=== PATIENT | male | born 1950 | race Caucasian/White ===

== ENCOUNTER 2019-03-15 20:36 | Inpatient (IN) | payer BC, OTHER ==
--- NOTE | 2019-03-15 20:46 | PDOC ---
Rapid Medical Evaluation Chief Complaint: Nausea/Vomiting Time Seen by Provider: 03/15/19 20:44 Medical Evaluation: Allergies Allergy/AdvReac Type Severity Reaction Status Date / Time ALL RAW FRUITS Allergy Intermediate "ITCH Uncoded 06/23/14 11:50 INSIDE BODY" ? ANTIBIOTIC Allergy Uncoded 06/20/15 14:11 03/15/19 20:44 I have performed a brief in-person evaluation of this patient. The patient presents with a chief complaint of: N/V since yesterday with sudden worsening weakness and sweating since an hour ago according to family. Pt report BERRY since yesterday Pertinent physical exam findings: A&O in moderate distress with mild diphoretic I have ordered the following: CBC, CMP, lipase. cardiac profile ,zofran. IV insert The patient will proceed to the ED for further evaluation. Discharge Disposition - Diagnosis Malaise Nausea & vomiting Qualifiers: Vomiting type: bilious vomiting Qualified Code(s): R11.14 - Bilious vomiting - Discharge Dispostion Condition at time of disposition: Stable - Referrals - Patient Instructions - Post Discharge Activity
[2019-03-15] MEDS ORDERED: ONDANSETRON *ODT* 4 MG TABLET SL ONE (20:47)
[2019-03-15] MEDS ORDERED: FAMOTIDINE 20 MG/50 ML IVPB 20 MG/50 ML MG IVPB ONE (20:48)
[2019-03-15] MEDS ORDERED: SODIUM CHLORIDE 500 ML IV STA (20:48)
[2019-03-15] MEDS ORDERED: RAPID SEQUENCE INTUBATION KIT NR ONE (21:41)
[2019-03-15] MEDS ORDERED: NALOXONE HCL 0.4 MG/ML VIAL ONE (21:41)
[2019-03-15] MEDS ORDERED: ONDANSETRON 4 MG/2 ML VIAL ONE (22:03)
[2019-03-15] MEDS ORDERED: PANTOPRAZOLE SODIUM 40 MG VIAL IVPUSH ONE ×2 (22:46→23:41)
--- NOTE | 2019-03-15 22:46 | PDOC ---
Attending Attestation - Resident Resident Name: Alvarado Munoz - ED Attending Attestation I have performed the following: I have examined & evaluated the patient, The case was reviewed & discussed with the resident, I agree w/resident's findings & plan, Exceptions are as noted - HPI HPI: 03/15/19 22:39 68 yo male h/o endovascular aaa repair, for infrarenal anuerysm 06/29/14, cirrhosis, htn hld here for headache intractable vomiting today, loose stool. per family at bedside pt was with hemetemesis, coffee ground emesis today. went to see his fudger today and was sent to reschedule. on arrival to ER pt was lethargic, became unresponsive with depressed respirations. called to bedisde pt with depressed respirations. per family. pt no complaints of cp or sob today. - Physicial Exam PE: 03/15/19 22:40 stuporous, unresponsive. lungs clear bilat heart rrr no mrg abd soft obese nondisteded. few scattered purpurua abd, ext wwp no edema. cool. large bruise. noted to legs. nuoer. pt no spontaneous movement. - Critical Care Time Total Critical Care Time: 90 Critical Care Statement: The care of this patient involved high complexity decision making to prevent further life threatening deterioration of the patient 's condition and/or to evaluate & treat vital organ system(s) failure or risk of failure. pt intubated for AMS unresponsive ness, resp depression found to have ICH, thrombocytopenia, on coumadin. given platelets, vit K FFP, mannitol. consult nuerosurgery. will take to or for decompression. pt with upper gi coffe groundmterial on intubation. given protonix 80, gi consulted. will admit to ICU d/w family regarding severity or the situation, progonosis - Medical Decision Making 03/15/19 22:41 68 yo male h/o cirrehosis thrombocytopenia, on coumadin, aaa repair. htn hld here with n/v headache. followed by unresponsiveness. pt was intubated with RSI ( rocuronium) noted large coffe ground, bloody emesis in mouth. airated well following intubation. rhomnchi lung bases. differential htn ich, aaa rupture, av fistula, sepsis, acidosis. plan ct head r/ o ich, cta r/o aortic rupture or endoleak. pt will require icu. gi prophuylaxis for GI bleed. 03/15/19 22:50 pt with intracranial bleed. will page dr hyatt. 03/15/19 23:06 d/w dr hyatt, poor prognosis based on ct scan. posterior fossa bleed with intra ventricular extension. will give mannitol, ffp and vit k for presumed coaguloapathy 03/16/19 00:01 dr Hyatt with pt will take to or. consulted ICU. pt accepted. d/w Dr Souza , will admit pt. Heart Score/ECG Review #1 ECG reviewed & interpreted by me at: 23:08 General ECG Interpretation: Sinus Rhythm, Normal Rate, Normal Intervals Compared to previous ECG there are: Other (st depression I, AVL, TWI, V5/ V6)
[2019-03-15] MEDS ORDERED: LABETALOL HCL 5 MG/1 ML (100MG/20 ML VIAL) IVPUSH ONE (22:51)
[2019-03-15] MEDS ORDERED: PHYTONADIONE 10 MG/1 ML AMP IVPB ONE (23:05)
[2019-03-15] MEDS ORDERED: MANNITOL 25% 12.5 GM/50 ML VIAL IVPB ONE (23:06)
[2019-03-15 23:18] LABS: HEMATOCRIT 32.1 % (35.4-49); HEMOGLOBIN 10.4 GM/dL (11.7-16.9); MCH 33.1 pg (25.7-33.7); MCHC 32.4 g/dl (32.0-35.9); MEAN CELL VOLUME 102.4 fl (80-96); MEAN PLT VOLUME 10.5 fl (7.5-11.1); RBC 3.14 M/mm3 (4.00-5.60); RDW 17.3 % (11.9-15.9); WHITE BLOOD COUNT 11.3 K/mm3 (4.0-10.0)
[2019-03-15 23:27] LABS: INR 1.24 (0.83-1.09); PROTHROMBIN TIME (PATIENT) 14.7 SEC (9.7-13.0)
[2019-03-15 23:30] LABS: ACTIVATED PTT 33.9 SECONDS (25.2-36.5)
--- NOTE | 2019-03-15 23:30 | PDOC ---
History of Present Illness <Leanne Rouse - Last Filed: 03/15/19 23:57> - History of Present Illness Initial Comments: Mr. Avalos is a 68 y/o male with hx of AAA, cirrhosis, HTN, HLD, presenting today with headache and nausea/vomiting that started today. Associated with loose stool, hematemesis, and coffee ground emesis earlier today. On arrival to the ED patient was lethargic. Denies chest pain, denies shortness of breath. SurgHx: AAA repair for infrarenal aneurysm <Alvarado Munoz - Last Filed: 03/16/19 02:54> - General Chief Complaint: Nausea/Vomiting Stated Complaint: FEVER NAUSEA Time Seen by Provider: 03/15/19 20:44 Past History <Leanne Rouse - Last Filed: 03/15/19 23:57> - Past Medical History Anemia: Yes Asthma: No Cancer: No Cardiac Disorders: Yes (CAD) CVA: No COPD: No CHF: No Dementia: No Diabetes: No GI Disorders: Yes (GERD;GAstritis) Disorders: Yes (KELLY RENAL CYSTS) HTN: Yes Hypercholesterolemia: Yes Liver Disease: (FATTY LIVER/CIRRHOSIS) Seizures: No Thyroid Disease: No - Surgical History Abdominal Surgery: Yes Appendectomy: Yes Cardiac Surgery: Yes (CABG-DOUBLE BYPASS) Cholecystectomy: No Lung Surgery: No Neurologic Surgery: No Orthopedic Surgery: No - Suicide/Smoking/Psychosocial Hx Smoking History: Never smoked Have you smoked in the past 12 months: No If you are a former smoker, when did you quit?: 2005 Hx Alcohol Use: No Drug/Substance Use Hx: No Substance Use Type: None Hx Substance Use Treatment: No <Alvarado Munoz - Last Filed: 03/16/19 02:54> - Past Medical History Allergies/Adverse Reactions: Allergies Allergy/AdvReac Type Severity Reaction Status Date / Time Iodinated Contrast- Oral and Allergy Verified 03/15/19 23:19 IV Dye ALL RAW FRUITS Allergy Intermediate "ITCH Uncoded 03/15/19 20:49 INSIDE BODY" Home Medications: Ambulatory Orders Atorvastatin Ca [Lipitor] 20 mg PO HS 03/02/14 Carvedilol [Coreg] 6.25 mg PO DAILY 03/02/14 Allopurinol [Zyloprim -] 100 mg PO DAILY 06/20/15 Losartan/Hydrochlorothiazide [Losartan-Hctz 100-12.5 mg Tab] 1 tab PO DAILY 10/30 Aspirin [Aspirin EC] 81 mg PO DAILY #0 06/21/15 Colchicine 0.6 mg PO DAILY #7 tablet 06/21/15 *Physical Exam - Vital Signs Last Vital Signs Temp Pulse Resp BP Pulse Ox 97.4 F L 79 20 192/81 H 97 03/15/19 20:41 03/15/19 20:41 03/15/19 20:41 03/15/19 20:41 03/15/19 20:41 <Leanne Rouse - Last Filed: 03/15/19 23:57> - Vital Signs Last Vital Signs Temp Pulse Resp BP Pulse Ox 97.4 F L 79 20 192/81 H 97 03/15/19 20:41 03/15/19 20:41 03/15/19 20:41 03/15/19 20:41 03/15/19 20:41 <Alvarado Munoz - Last Filed: 03/16/19 02:54> ED Treatment Course - LABORATORY CBC & Chemistry Diagram: 03/15/19 23:00 03/15/19 23:00 - ADDITIONAL ORDERS Additional order review: Laboratory Results 03/15/19 03/15/19 03/15/19 23:05 23:00 23:00 PT with INR INR PTT (Actin FS) Sodium 141 Potassium 4.6 Chloride 112 H Carbon Dioxide 20 L Anion Gap 10 BUN 44.2 H Creatinine 2.0 H Est GFR (CKD-EPI)AfAm 38.87 Est GFR (CKD-EPI)NonAf 33.54 POC Glucometer Random Glucose 212 H Calcium 9.0 Total Bilirubin 1.2 H AST 15 ALT 10 L Alkaline Phosphatase 78 Creatine Kinase 96 Troponin I < 0.02 Total Protein 7.3 Albumin 4.3 Triglycerides 139 Cholesterol 125 Total LDL Cholesterol 70 HDL Cholesterol 49 Crossmatch See Detail 03/15/19 03/15/19 23:00 21:44 PT with INR 14.70 H INR 1.24 H PTT (Actin FS) 33.9 Sodium Potassium Chloride Carbon Dioxide Anion Gap BUN Creatinine Est GFR (CKD-EPI)AfAm Est GFR (CKD-EPI)NonAf POC Glucometer 220 Random Glucose Calcium Total Bilirubin AST ALT Alkaline Phosphatase Creatine Kinase Troponin I Total Protein Albumin Triglycerides Cholesterol Total LDL Cholesterol HDL Cholesterol Crossmatch 03/15/19 03/15/19 23:00 21:44 RBC 3.14 L MCV 102.4 H MCHC 32.4 RDW 17.3 H MPV 10.5 D POC Glucometer 220 - RADIOLOGY Radiology Studies Ordered: Category Date Time Status ABDOMEN/PELVIS CTA W/WO CONTR [CT] Stat CT Scan 03/15/19 22:22 Completed CHEST CTA [CT] Stat CT Scan 03/15/19 22:22 Completed <Leanne Rouse - Last Filed: 03/15/19 23:57> - LABORATORY CBC & Chemistry Diagram: 03/15/19 23:00 03/15/19 23:00 - ADDITIONAL ORDERS Additional order review: Laboratory Results 03/15/19 21:44 POC Glucometer 220 03/15/19 03/15/19 23:00 21:44 RBC 3.14 L MCV 102.4 H MCHC 32.4 RDW 17.3 H MPV 10.5 D POC Glucometer 220 <Alvarado Munoz - Last Filed: 03/16/19 02:54> Medical Decision Making - Medical Decision Making 03/15/19 2245 68M on coumadin s/p AAA repair. Headache, coffee ground emesis, lethargic on presentation. At bedside, patient became unresponsive without good air movements. Pulses intact. Patient was ventilated. Patient remained unresponsive. Rapid sequence intubation with rocuronium. On intubation, coffee ground emesis was suctioned all around the mouth. Bilateral breath sounds present after intubation. DDX includes intracranial hemorrhage 2/2 HTN, AAA rupture, sepsis. Will obtain CT of the head and CTA of the chest, abdomen, and pelvis. 03/15/19 23:00 Patient found to have intracranial hemorrhage. Acute partially clotted hemorrhage seen within right cerebellar hemisphere extending into superior cerebellar vermins. Intraventricular extension noted. Obstructive hydrocephalus seen. Effacement of perimesencephalic cisterns. Small acute right sided interhemispheric subdural hematoma noted. Dr. Hyatt (neurosurgery) called. Prognosis poor. Will give mannitol, FFP, vitamin K. <Alvarado Munoz - Last Filed: 03/16/19 02:54> *DC/Admit/Observation/Transfer <Leanne Rouse - Last Filed: 03/15/19 23:57> - Discharge Dispostion Decision to Admit order: Yes <Alvarado Munoz - Last Filed: 03/16/19 02:54> Diagnosis at time of Disposition: Malaise, Brain bleed, Thrombocytopenia, GI bleed Nausea & vomiting Qualifiers: Vomiting type: bilious vomiting Qualified Code(s): R11.14 - Bilious vomiting - Discharge Dispostion Condition at time of disposition: Critical - Referrals Referrals: Adrianna Linda MD [Primary Care Provider] - - Patient Instructions - Post Discharge Activity
[2019-03-15 23:41] LABS: CHOLESTEROL 125 mg/dL (50-200); HDL CHOLESTEROL 49 mg/dL (40-60); LDL CHOLESTEROL (ONLY SJRH) 70 mg/dL (5-100); TRIGLYCERIDES 139 mg/dL (0-150)
[2019-03-15] MEDS ORDERED: OCTREOTIDE ACETATE 200 MCG, OCTREOTIDE ACETATE 1,000 MCG in DEXTROSE 5%-WATER - 496 ML IVPB SCH (23:45)
[2019-03-15] MEDS: NICARDIPINE 25 MG in DEXTROSE 5%-WATER - 240 ML IVPB SCH (23:45)
[2019-03-15] MEDS ORDERED: PANTOPRAZOLE SODIUM 80 MG in SODIUM CHLORIDE 100 ML IVPB SCH (23:45)
[2019-03-15 23:46] LABS: ALBUMIN 4.3 g/dl (3.4-5.0); ALK PHOS 78 U/L (45-117); ANION GAP 10 MMOL/L (8-16); BILIRUBIN,TOTAL 1.2 mg/dL (0.2-1); BLOOD UREA NITROGEN 44.2 mg/dL (7-18); CHLORIDE 112 mmol/L (98-107); CO2 20 mmol/L (21-32); GLUCOSE,RANDOM 212 mg/dL (74-106); POTASSIUM 4.6 mmol/L (3.5-5.1); SGOT/AST 15 U/L (15-37); SGPT/ALT 10 U/L (13-61); SODIUM 141 mmol/L (136-145); TOT PROT 7.3 g/dl (6.4-8.2)
[2019-03-15 23:48] LABS: PLATELET COUNT 15 K/MM3 (134-434)
[2019-03-15] MEDS ORDERED: NALOXONE HCL 0.4 MG/ML VIAL IVPUSH ONE (23:53)
[2019-03-15] MEDS ORDERED: ROCURONIUM BROMIDE 50 MG/5 ML VIAL IV ONE (23:53)
[2019-03-15] MEDS: OCTREOTIDE ACETATE 200 MCG, OCTREOTIDE ACETATE 1,000 MCG in DEXTROSE 5%-WATER - 496 ML IVPB SCH (23:57)
--- NOTE | 2019-03-15 23:57 | PN ---
Progress Note (short form) - Note Progress Note: NEUROSURGERY CONSULT DICTATED Pt examined Chart reviewed CT reviewed Family at bedside Also with maroon color stool - GI informed PE: Intubated; hypertensive earlier (192/81) now 160's, and received rocuronium CV- RR; Lungs- decreased BS at bases; Abd- benign, obese, ecchomosis; Ext- no sign of DVT CN- B pupils 4 mm NR; no gag; no Doll's; Motor- no movement to pain except occ toe movements; Sensation- intact LT; DTR- hyporeflexic; toes equivocal INR 1.25; platelet 18k Head CT- large midline and R cerebellar mixed density ICH (acute) with mass effect on 4th ventricle at least 4 x 5 cm in size; intraventricular extension; B temporal horns Probable cerebellar hypertensive ICH with mass effect and mental status deterioration Vitamin K given FFP/platelet ordered and to be transfused PRBC ordered Decompressive post fossa surgery for ICH is the only chance pt has at survival, even though outcome is grave regardless of (no more than 5% chance of recovering from surgery) what is done or not Risks: bleeding, infection, stroke, , inability to stop bleeding in OR; rehemorrhage Potential risks and benefits discussed Mannitol x1 D/W , son, and daughter and family wish to proceed with surgery desite the minimal chance of surviving/recovering from surgery All questions answered
[2019-03-16] MEDS ORDERED: PHYTONADIONE 10 MG/1 ML AMP ONE (00:06)
[2019-03-16] MEDS ORDERED: LABETALOL HCL 5 MG/1 ML (200MG/40ML VIAL) IVPB ONE (00:06)
[2019-03-16] MEDS ORDERED: PANTOPRAZOLE SODIUM 40 MG VIAL ONE (00:07)
--- NOTE | 2019-03-16 00:59 | CONS ---
DATE OF CONSULTATION: 03/15/2019 REQUESTING PHYSICIAN: Leanne Rouse M.D., emergency department CONSULTING PHYSICIAN: Steffen Stephen M.D., neurosurgery CHIEF COMPLAINT: Probable cerebellar hypertensive hemorrhage/stroke. HISTORY OF PRESENT ILLNESS: The patient is a 68-year-old right hand male with a history of aortic aneurysm status post endovascular treatment, hypertension, hypercholesterolemia, on chronic anticoagulation, who is brought to the emergency room for approximately a day history of nausea and vomiting by report. He also developed worsening nausea and vomiting with diplopia earlier this evening at about 7:30 p.m. He was brought to the emergency room, and his mental status deteriorated and was intubated for airway protection. He was given paralytics for intubation. There was a report of fever, but no witnessed seizure activity. PAST MEDICAL HISTORY: He was hypertensive upon admission, and blood pressure subsequently was lower after intubation. Past medical history significant for hypertension, CAD s/p CABG, AAA status post endovascular repair. MEDICATION: Included Coumadin and antihypertensive as well as the cholesterol medication at home. ALLERGIES: No known drug allergies. FAMILY HISTORY: Noncontributory. SOCIAL HISTORY: He does not smoke. He quit drinking many years ago. He lives at home with his family. REVIEW OF SYSTEMS: Otherwise negative for other major constitutional, head/neck , cardiovascular, pulmonary, gastrointestinal, genitourinary, endocrinologic, neurologic, or psychological problems except for the above. PHYSICAL EXAMINATION: Vital signs: Temperature is 97.4, blood pressure 192/80, but most recently had systolic pressure of 160s, pulse rate 79. HEENT: Normocephalic, atraumatic, anicteric. Neck: Supple. Coronary: Regular rhythm. Lungs: Decreased breath sounds in the bases. He is intubated. Abdomen: Obese and had some areas of ecchymosis. Neurological: He is intubated and sedated. Cranial nerves examination shows him to have pupils of 4 to 5 mm bilaterally with minimal to nonreactive. He has no Doll's and no gag, however he did receive a paralytic about an hour earlier. Motor examination shows occasional twitch to movement of his toes, however he does not withdraw or flex or extend to pain. Sensory examination difficult to assess . Deep tendon reflexes were hyporeflexive throughout. Toes are equivocal. LABORATORY EXAMINATION: White blood cell count 11.3 and hemoglobin 10.4, platelet count 15,000. INR is 1.24, and PTT is 33.9. Serum sodium is 141, potassium 4.6. BUN and creatinine are 44 and 2.0, respectively. Calcium 9.0, glucose 212, troponin is less than 0.02. CT scan of the head demonstrated an acute partially carotid posterior fossa hemorrhage about 4 to 5 cm within the right cerebellar hemisphere extending to the midline. There is defacement of 4th ventricle. There is interventricular hemorrhage within the lateral ventricle and third ventricle. There is beginning of hydrocephalus with temporal horn. There is effacement of the terry- mesencephalic cistern. There is a chronic left basal ganglia lacune. There is thickening of the posterior falx with possible associated subdural hematoma. IMPRESSION: 1. Acute right posterior fossa hemorrhage with mass effect and hydrocephalus with associated intraventricular hemorrhage. 2. Hypertension. 3. Hypercholesterolemia. 4. History of AAA status post endovascular repair. 5. CAD s/p CABG on chronic anticoagulation. 6. Thrombocytopenia. RECOMMENDATION: The patient presented with acute neurological deterioration possibly from cerebellar hemorrhage is ischemic stroke with hemorrhagic transformation. The size of the hemorrhage is about 4 x 5 cm, is predominantly right cerebellar dentate area. There is mass effect on 4th ventricle with rupture into the 4th and intraventricular system resulting in mild to moderate ventricular dilatation. There are also temporal horns. Regardless of what is done, the prognosis is grave. The only chance the patient has surviving is through emergency posterior fossa decompression by suboccipital craniotomy followed by hematoma and debridement. Drain may also need to be placed. Ventriculostomy is not recommended at this time because of likelihood for upward herniation. The patient is at significant risk of intraoperative hemorrhage because of his severe thrombocytopenia as well as his coagulopathy on Coumadin. After hearing the pros and cons to treatment approaches, the patient's family decides to have the patient undergo emergency surgical procedure as outlined above. Other risks of surgery including but not limited to bleeding , infection, stroke, seizure, coma, , re-hemorrhage, inability to stop bleeding during surgery. They understand the patient may on the operating room table because of his significant coagulopathy and thrombocytopenia. Patient will receive both platelet and FFP transfusion. He received vitamin K previously also. All questions were answered at bedside, and a CT scan images were reviewed with the patient's family. The care was discussed with the emergency room attending team. I did ask for the patient to receive a dose of 25 g of mannitol in ED. STEFFEN STEPHEN M.D. XIMENA/[id number] MTDD
--- NOTE | 2019-03-16 01:29 | HP ---
<Sasha Chew - Last Filed: 03/17/19 04:46> CHIEF COMPLAINT: Headache and hematemesis PCP: HISTORY OF PRESENT ILLNESS: Patient is a 68 year old male with PMHx of AAA repair for infrarenal aneurysm ( 06/29/14), cirrhosis thrombocytopenia, HTN, and HLD who presents with headache, intractable vomiting, and loose stool for one day. Family at bedside assisted with history. Pt complained of headache this morning that was later associated with coffee ground emesis, hematemesis, and loose, maroon-colored stool. No complaints of chest pain or SOB. On arrival to the ED, pt was hypertensive (192/ 81), lethargic, and became unresponsive with depressed respirations. Pt was intubated with rocuronium and aerated well following intubation. CT head showed cerebellar dentate hypodense hemorrhage with intraventricular extension. Neurosurgery (Dr. Hyatt) was consulted. Poor prognosis based on CT scan was discussed with family. Pt was given mannitol, 2 units FFP, 1 unit PRBC, and vtamin K. Poor prognosis based on CT scan was discussed with family and they wish to proceed with surgery. ED course notable for: (1) CT head: cerebellar hemorrhage with ventricular extension and obstructive hydrocephalus (2) Platelet count: 15 (3) H/H: 3.15/10.4 Recent Travel: Denies PAST MEDICAL HISTORY: Cirrhosis AAA HTN HLD PAST SURGICAL HISTORY: AAA repair (06/29/14) Allergies Iodinated Contrast- Oral and IV Dye Allergy (Verified 03/15/19 23:19) ALL RAW FRUITS Allergy (Intermediate, Uncoded 03/15/19 20:49) "ITCH INSIDE BODY" "TINGLING SENSATION " TO THROAT AND STOMACH. HOME MEDICATIONS: Home Medications Medication Instructions Recorded Atorvastatin Ca [Lipitor] 20 mg PO HS 03/02/14 Carvedilol [Coreg] 6.25 mg PO DAILY 03/02/14 Allopurinol [Zyloprim -] 100 mg PO DAILY 06/20/15 Losartan/Hydrochlorothiazide 1 tab PO DAILY 06/20/15 [Losartan-Hctz 100-12.5 mg Tab] Aspirin [Aspirin EC] 81 mg PO DAILY #0 06/21/15 Colchicine 0.6 mg PO DAILY #7 tablet 06/21/15 REVIEW OF SYSTEMS CONSTITUTIONAL: Absent: fever, chills, diaphoresis, generalized weakness, malaise, loss of appetite, weight change HEENT: Absent: rhinorrhea, nasal congestion, throat pain, throat swelling, difficulty swallowing, mouth swelling, ear pain, eye pain, visual changes CARDIOVASCULAR: Absent: chest pain, syncope, palpitations, irregular heart rate, lightheadedness , peripheral edema RESPIRATORY: shortness of breath Absent: cough, dyspnea with exertion, orthopnea, wheezing, stridor, hemoptysis GASTROINTESTINAL: nausea, vomiting, diarrhea Absent: abdominal pain, abdominal distension, constipation, melena, hematochezia GENITOURINARY: Absent: dysuria, frequency, urgency, hesitancy, hematuria, flank pain, genital pain MUSCULOSKELETAL: Absent: myalgia, arthralgia, joint swelling, back pain, neck pain SKIN: Absent: rash, itching, pallor HEMATOLOGIC/IMMUNOLOGIC: Absent: easy bleeding, easy bruising, lymphadenopathy, frequent infections ENDOCRINE: Absent: unexplained weight gain, unexplained weight loss, heat intolerance, cold intolerance NEUROLOGIC: Absent: headache, focal weakness or paresthesias, dizziness, unsteady gait, seizure, mental status changes, bladder or bowel incontinence PSYCHIATRIC: Absent: anxiety, depression, suicidal or homicidal ideation, hallucinations. PHYSICAL EXAMINATION Vital Signs - 24 hr 03/15/19 03/15/19 20:41 22:30 Temperature 97.4 F L Pulse Rate 79 Respiratory 20 14 Rate Blood Pressure 192/81 H O2 Sat by Pulse 97 Oximetry (%) GENERAL: Pt intubated HEAD: Normal with no signs of trauma. EYES: Pupils equal, round and reactive to light, extraocular movements intact, sclera anicteric, conjunctiva clear. No lid lag. EARS, NOSE, THROAT: Ears normal, nares patent, oropharynx clear without exudates. Moist mucous membranes. NECK: Normal range of motion, supple without lymphadenopathy, JVD, or masses. LUNGS: Decreased breath sounds at bases with ronchi. Accessory muscle use. HEART: Regular rate and rhythm, normal S1 and S2 without murmur, rub or gallop. ABDOMEN: Distended and obese, normoactive bowel sounds, petechiae diffusely. MUSCULOSKELETAL: Normal range of motion at all joints. No bony deformities or tenderness. No CVA tenderness. UPPER EXTREMITIES: 2+ pulses, warm, well-perfused. No cyanosis. No clubbing. No peripheral edema. LOWER EXTREMITIES: 2+ pulses, warm, well-perfused. No calf tenderness. No peripheral edema. NEUROLOGICAL: BL pupils 4mm nonreactive. No gag reflex. No doll's reflex. No movement to pain. Hyporeflexic DTR. SKIN: Warm, dry, normal turgor, no rashes or lesions noted, normal capillary refill. Laboratory Results - last 24 hr 03/15/19 03/15/19 03/15/19 21:44 23:00 23:00 WBC RBC Hgb Hct MCV MCH MCHC RDW Plt Count MPV PT with INR 14.70 H INR 1.24 H PTT (Actin FS) 33.9 Sodium 141 Potassium 4.6 Chloride 112 H Carbon Dioxide 20 L Anion Gap 10 BUN 44.2 H Creatinine 2.0 H Est GFR (CKD-EPI)AfAm 38.87 Est GFR (CKD-EPI)NonAf 33.54 POC Glucometer 220 Random Glucose 212 H Calcium 9.0 Total Bilirubin 1.2 H AST 15 ALT 10 L Alkaline Phosphatase 78 Creatine Kinase 96 Troponin I < 0.02 Total Protein 7.3 Albumin 4.3 Triglycerides Cholesterol Total LDL Cholesterol HDL Cholesterol Crossmatch 03/15/19 03/15/19 03/15/19 23:00 23:00 23:05 WBC 11.3 H RBC 3.14 L Hgb 10.4 L Hct 32.1 L MCV 102.4 H MCH 33.1 D MCHC 32.4 RDW 17.3 H Plt Count 15 L* D MPV 10.5 D PT with INR INR PTT (Actin FS) Sodium Potassium Chloride Carbon Dioxide Anion Gap BUN Creatinine Est GFR (CKD-EPI)AfAm Est GFR (CKD-EPI)NonAf POC Glucometer Random Glucose Calcium Total Bilirubin AST ALT Alkaline Phosphatase Creatine Kinase Troponin I Total Protein Albumin Triglycerides 139 Cholesterol 125 Total LDL Cholesterol 70 HDL Cholesterol 49 Crossmatch See Detail ASSESSMENT/PLAN: Patient is a 68 year old male with PMHx of AAA repair for infrarenal aneurysm ( 06/29/14), cirrhosis thrombocytopenia, HTN, and HLD who presents with cerebellar hypertensive ICH with mass effect. #Acute cerebellar ICH Pt to OR for evacuation (Dr. Hyatt) Pt still intubated Poor prognosis, discussed with family F/u with Dr. Hyatt for post-op management #Upper GI bleed Likely 2/2 coumadin use concurrently with thrombocytopenia Protonix and octreotide drip 3 PRBC ordered, 1 given, 2 on hold 2 units platelets/FFP ordered, vitamin K Consulted Lio, weight loss sales consultant aware of pt's condition Will monitor CBC F/u FOBT in am Monitor in ICU Visit type - Emergency Visit Emergency Visit: Yes ED Registration Date: 03/15/19 Care time: The patient presented to the Emergency Department on the above date and was hospitalized for further evaluation of their emergent condition. - New Patient This patient is new to me today: Yes Date on this admission: 03/17/19 - Critical Care Critical Care patient: Yes Total Critical Care Time (in minutes): 45 Critical Care Statement: The care of this patient involved high complexity decision making to prevent further life threatening deterioration of the patient 's condition and/or to evaluate & treat vital organ system(s) failure or risk of failure. ATTENDING PHYSICIAN STATEMENT I saw and evaluated the patient. I reviewed the resident's note and discussed the case with the resident. I agree with the resident's findings and plan as documented. SUBJECTIVE: OBJECTIVE: ASSESSMENT AND PLAN: <Timoteo Eaton - Last Filed: 05/13/19 03:02> PMH PSH,reviewed and are as per chart Social history is negative for active IVDU, red-flag social concerns. Family history negative for sudden cardiac , discussed at length and was otherwise noncontributory. No adverse primary relative anesthesia rxn ATTENDING PHYSICIAN STATEMENT I saw and evaluated the patient. I reviewed the resident's note and discussed the case with the resident. I agree with the resident's findings and plan as documented. SUBJECTIVE: OBJECTIVE: ASSESSMENT AND PLAN:
[2019-03-16] MEDS ORDERED: ROCURONIUM BROMIDE 50 MG/5 ML SYRINGE ONE ×4 (02:05→03:05)
[2019-03-16] MEDS ORDERED: BACITRACIN 15 GM TUBE TOPICAL OINTMENT ONE (02:06)
[2019-03-16] MEDS ORDERED: fentaNYL CITRATE 250 MCG/5 ML VIAL ONE (02:07)
[2019-03-16] MEDS ORDERED: THROMBIN (BOVINE) 5,000 UNIT VIAL TP ONE (02:18)
[2019-03-16] MEDS ORDERED: ceFAZolin SODIUM 1 GM VIAL IVPB ONE (02:30)
[2019-03-16] MEDS ORDERED: LIDOCAINE 1%-EPI 1:100,000 30 ML MDV IJ ONE (02:40)
[2019-03-16] MEDS ORDERED: LIDOCAINE 1%/EPI 1:100000 (20 ML MULTI DOSE VIAL) IJ ONE (02:45)
[2019-03-16] MEDS ORDERED: BACITRACIN 50,000 UNITS VIAL TP ONE ×2 (02:50)
--- NOTE | 2019-03-16 03:57 | PN ---
Teaching Attending Note Name of Resident: Sasha Chew ATTENDING PHYSICIAN STATEMENT I saw and evaluated the patient. I reviewed the resident's note and discussed the case with the resident. I agree with the resident's findings and plan as documented. Briefly seen in ER with resident team prior to departure to OR. Discussed with ER, NSGY, ICU, GI. He is a 68 y/o with hx cirrhosis presenting with IC bleed, coffee ground emesis, hemodynamic instability. He is being brought to OR for urgent neurosurgical procedure. Profound thrombocytopenia 2/2 cirrhosis but Hb in 10 range. CGE noted on arrival. No bright red blood. XF 1 unit prophylactically, plts >50k, ICU eval for vent and critical illness management. He is still in PACU being actively managed at this time. Code is DNR. Critically ill appearing, CGE on lips, tube in s1/2, vent assoc breath sounds Adbomen slight distended +BS Not agitated, lines noted Imaging results reviewed with ICU team ASSESSMENT AND PLAN: Per resident note; in summation he is critically ill and will require admission to ICU. Very guarded prognosis Pending postoperative assessment; please see resident note for further discussion. Case is rapidly developing. Deferring care to critical care services and surgical services; role of hospitalist in management exceptionally limited.
--- NOTE | 2019-03-16 04:40 | OP ---
Operative Note - Note: Operative Date: 03/16/19 Pre-Operative Diagnosis: Cerebellar hypertensive stroke/hemorrhage with mass effect Operation: Suboccipital craniectomy, debridement of R posterior fossa tissue, drainage of unclotted blood; microdissection Findings: Unclotted blood; some non-viable deep cerebellar tissues; coagulopathy; Family asked that pt be made DNR including in the OR Surgeon: Steffen Hyatt Anesthesiologist/ROLL WINDER: Georges Toscano Anesthesia: General Estimated Blood Loss (mls): 400 Blood Volume Replaced (mls): 500 (2 u prbc, 2 monodonor platelets, 1 FFP) Operative Report Dictated: Yes
[2019-03-16] MEDS ORDERED: ONDANSETRON 4 MG/2 ML VIAL IVPUSH PRN (04:41)
[2019-03-16] MEDS ORDERED: morphine SULFATE 4 MG/ML VIAL IVPUSH PRN (04:43)
[2019-03-16] MEDS ORDERED: D5-NS + 20 MEQ KCL - 20 MEQ/1,000 ML INFUS.BAG IV SCH (04:45)
--- NOTE | 2019-03-16 05:13 | PN ---
Progress Note (short form) - Note Progress Note: NEUROSURGERY In PACU PE: Intubated; 100/39, 57; occ PVC's, O2 sat 100% CV- RR; Lungs- decreased BS at bases; Abd- benign, obese; Ext- no sign of DVT CN- R pupil 3.5 mm, L pupil 4 mm minimal to non-reactive; no gag; no Doll's; Motor- no movement to pain; Sensation- intact LT; DTR- hyporeflexic Probable cerebellar hypertensive stroke/ICH with mass effect and mental status deterioration Coagulopathy and thrombocytopenia s/p Decompressive post fossa surgery Prognosis poor regardless F/u CT later today check labs and CXR Cont protonix SBP 90-150 Findings d/w , son, and daughter
--- NOTE | 2019-03-16 05:36 | CONSULT ---
Consultation: REQUESTING PROVIDER: CONSULT REQUEST: We have been asked to medically evaluate this patient for post operative (suboccipital craniectomy, R posterior fossa tissue debridement) ICU admission. HISTORY OF PRESENT ILLNESS: The patient is a 68 y/o male with a PMHx of AAA (s/ p endovascular repair) cirrhosis, HTN, HLD presented to the ED yesterday c/o headache, coffee ground emesis and diaphoresis. Symptoms started around 2-3 p.m. yesterday afternoon. In the ED patient became unresponsive and required intubation. Head CT showed R cerebellar ICH w/mass effect on the 4th ventricle with intraventricular extension. Neurosurgery @ bedside. Patient is s/p evacuation overnight and remains sedated. REVIEW OF SYSTEMS: Unable to obtain 2/2 to patient's clinical presentation PHYSICAL EXAMINATION General: Intubated HEENT: Fixed, dilated (L >R) non-reactive pupils CV: S1, S2 RRR Respiratory: decreased breath sounds B/L Abdomen: soft, (+) bowel sounds Vital Signs - 24 hr 03/15/19 03/15/19 03/15/19 20:41 22:30 23:45 Temperature 97.4 F L Pulse Rate 79 92 H Respiratory 20 14 Rate Blood Pressure 192/81 H 196/111 H O2 Sat by Pulse 97 Oximetry (%) 03/16/19 03/16/19 01:01 01:54 Temperature Pulse Rate Respiratory 14 14 Rate Blood Pressure O2 Sat by Pulse Oximetry (%) Laboratory Results - last 24 hr 03/15/19 03/15/19 03/15/19 21:44 23:00 23:00 WBC RBC Hgb Hct MCV MCH MCHC RDW Plt Count MPV PT with INR 14.70 H INR 1.24 H PTT (Actin FS) 33.9 Sodium 141 Potassium 4.6 Chloride 112 H Carbon Dioxide 20 L Anion Gap 10 BUN 44.2 H Creatinine 2.0 H Est GFR (CKD-EPI)AfAm 38.87 Est GFR (CKD-EPI)NonAf 33.54 POC Glucometer 220 Random Glucose 212 H Calcium 9.0 Total Bilirubin 1.2 H AST 15 ALT 10 L Alkaline Phosphatase 78 Creatine Kinase 96 Troponin I < 0.02 Total Protein 7.3 Albumin 4.3 Triglycerides Cholesterol Total LDL Cholesterol HDL Cholesterol Anti-A Titer Blood Type Antibody Screen Crossmatch 03/15/19 03/15/19 03/15/19 23:00 23:00 23:05 WBC 11.3 H RBC 3.14 L Hgb 10.4 L Hct 32.1 L MCV 102.4 H MCH 33.1 D MCHC 32.4 RDW 17.3 H Plt Count 15 L* D MPV 10.5 D PT with INR INR PTT (Actin FS) Sodium Potassium Chloride Carbon Dioxide Anion Gap BUN Creatinine Est GFR (CKD-EPI)AfAm Est GFR (CKD-EPI)NonAf POC Glucometer Random Glucose Calcium Total Bilirubin AST ALT Alkaline Phosphatase Creatine Kinase Troponin I Total Protein Albumin Triglycerides 139 Cholesterol 125 Total LDL Cholesterol 70 HDL Cholesterol 49 Anti-A Titer Cancelled Blood Type Cancelled Antibody Screen Cancelled Crossmatch See Detail 03/16/19 00:40 WBC RBC Hgb Hct MCV MCH MCHC RDW Plt Count MPV PT with INR INR PTT (Actin FS) Sodium Potassium Chloride Carbon Dioxide Anion Gap BUN Creatinine Est GFR (CKD-EPI)AfAm Est GFR (CKD-EPI)NonAf POC Glucometer Random Glucose Calcium Total Bilirubin AST ALT Alkaline Phosphatase Creatine Kinase Troponin I Total Protein Albumin Triglycerides Cholesterol Total LDL Cholesterol HDL Cholesterol Anti-A Titer Blood Type O POSITIVE Antibody Screen Negative Crossmatch Active Medications Generic Name Dose Route Start Last Admin Trade Name Freq PRN Reason Stop Dose Admin Chlorhexidine Gluconate 1 applic 03/16/19 22:00 Hibiclens For Decolonization - TP HS CARISSA Dexamethasone Sodium Phosphate 4 mg 03/16/19 09:00 Decadron Injection - IVPUSH Q6H-IV CARISSA Docusate Sodium 100 mg 03/16/19 06:00 Colace - PO TID CARISSA Fentanyl 50 mcg 03/16/19 03:55 Sublimaze Injection - IVPUSH [id number] PRN PAIN-PACU ORDER X 4 DOSES ONLY Nicardipine HCl 25 mg/ 250 mls @ 25 mls/hr 03/15/19 23:00 03/15/19 23:45 Dextrose IVPB 2.5 mg/hr TITR CARISSA 25 mls/hr Administration Protocol 2.5 MG/HR Pantoprazole Sodium 80 mg/ 100 mls @ 10 mls/hr 03/15/19 23:45 03/15/19 23:45 Sodium Chloride IVPB 10 mls/hr Q10H CARISSA Administration 8 MG/HR Octreotide Acetate 200 mcg/ 500 mls @ 20.833 mls/hr 03/15/19 23:59 03/15/19 23:57 Octreotide Acetate 1,000 mcg/ IVPB 20.833 mls/hr Dextrose Q24H CARISSA Administration Cefazolin Sodium 1 gm in 50 mls @ 100 mls/hr 03/16/19 10:00 Ancef 1 Gm Premixed Ivpb - IVPB 03/18/19 09:59 Q8H-IV CARISSA Dextrose/Sodium Chloride 20 meq in 1,000 mls @ 80 mls/hr 03/16/19 04:45 Dextrose 5%-Normal Saline+20 Meq Kcl - IV ASDIR CARISSA Morphine Sulfate 4 mg 03/16/19 04:43 Morphine Sulfate IVPUSH Q3H PRN PAIN LEVEL 4 - 6 Mupirocin 1 applic 03/16/19 10:00 Bactroban Ointment (For Decolonization) - NS 03/21/19 09:59 BID CARISSA Ondansetron HCl 4 mg 03/16/19 04:41 Zofran Injection IVPUSH Q6H PRN NAUSEA Pantoprazole Sodium 40 mg 03/16/19 10:00 Protonix Iv IVPUSH DAILY [facility] ASSESSMENT/PLAN: 68 year old male with cerebellar hemorrhage, ? Cerebellar Hypertensive Stroke POD #0 Decompressive Posterior Fossa Surgery (1) Cerebellar Hypertensive Stroke/ICH with mass effect s/p decompressive posterior fossa surgery - Patient s/p evacuation in the OR overnight, remains intubated - Maintain SBPs 90's-150's - Pain control w/Fentanyl PRN, Morphine PRN; Zofran PRN for nausea - Post operative Ancef - Colace (TID) - Patient made DNR orally in the OR, DNR signed in PACU - Repeat CT, CXR pending (2) UGI bleed - likel 2/2 to Coumadin - H/o multiple episodes of Coffee ground emesis - Hb 11.4 - S/p 2 units PRBC - Continue PPI (3) Thrombocytopenia - possibly 2/2 to liver cirrhosis - Platelets, FFP pending - GI consulted - Monitor CBC FEN - Monitor electrolytes - NPO w/IV hydration PPx: - SCD's - No chemical prophylaxis Patient's : Mohinder Avalos: Patient is DNR Dispo: We will continue to follow the patient. Thank you for this consultative opportunity. Visit type - Emergency Visit Emergency Visit: Yes Care time: The patient presented to the Emergency Department on the above date and was hospitalized for further evaluation of their emergent condition. - New Patient This patient is new to me today: Yes Date on this admission: 03/16/19 - Critical Care Critical Care patient: Yes Total Critical Care Time (in minutes): 30 Critical Care Statement: The care of this patient involved high complexity decision making to prevent further life threatening deterioration of the patient 's condition and/or to evaluate & treat vital organ system(s) failure or risk of failure. ATTENDING PHYSICIAN STATEMENT I saw and evaluated the patient. I reviewed the resident's note and discussed the case with the resident. I agree with the resident's findings and plan as documented. SUBJECTIVE: OBJECTIVE: ASSESSMENT AND PLAN:
[2019-03-16] MEDS ORDERED: DOCUSATE SODIUM 100 MG CAPSULE (FP) PO SCH (06:00)
[2019-03-16 07:35] LABS: HEMATOCRIT 29.9 % (35.4-49); HEMOGLOBIN 10.2 GM/dL (11.7-16.9); MCH 33.2 pg (25.7-33.7); MCHC 34.1 g/dl (32.0-35.9); MEAN CELL VOLUME 97.2 fl (80-96); MEAN PLT VOLUME 7.9 fl (7.5-11.1); PLATELET COUNT 79 K/MM3 (134-434); RBC 3.07 M/mm3 (4.00-5.60); RDW 18.1 % (11.9-15.9); WHITE BLOOD COUNT 6.4 K/mm3 (4.0-10.0)
[2019-03-16 07:39] LABS: INR 1.25 (0.83-1.09); PROTHROMBIN TIME (PATIENT) 14.8 SEC (9.7-13.0)
[2019-03-16 08:20] LABS: ALBUMIN 3.5 g/dl (3.4-5.0); BILIRUBIN,TOTAL 1.7 mg/dL (0.2-1); BLOOD UREA NITROGEN 41.6 mg/dL (7-18); CALCIUM 7.6 mg/dL (8.5-10.1); CREATININE 2.1 mg/dL (0.55-1.3); TOT PROT 6.1 g/dl (6.4-8.2)
[2019-03-16 08:26] LABS: POTASSIUM 7.4 mmol/L (3.5-5.1)
[2019-03-16] MEDS ORDERED: INSULIN REGULAR HUMAN 100 UNITS/ML *VIAL IVPUSH ONE ×2 (08:30→09:55)
[2019-03-16] MEDS ORDERED: DEXTROSE 50%-WATER - 25 GM/50 ML VIAL IVPUSH ONE ×2 (08:30→09:53)
[2019-03-16] MEDS ORDERED: CALCIUM GLUCONATE 10% - 1,000 MG/10 ML VIAL IVPUSH ONE (08:30)
[2019-03-16] MEDS ORDERED: DEXTROSE 50%-WATER 25 GM/50 ML DISP.SYRIN ONE (08:39)
[2019-03-16] MEDS ORDERED: DEXAMETHASONE SOD PHOSPHATE 4 MG/1 ML VIAL IVPUSH SCH (09:00)
[2019-03-16] MEDS: PANTOPRAZOLE SODIUM 40 MG VIAL IVPUSH SCH (09:09)
[2019-03-16] MEDS ORDERED: ceFAZolin SODIUM 1 GM VIAL ONE ×2 (09:24→18:23)
--- NOTE | 2019-03-16 09:27 | EKG ---
Test Reason : Blood Pressure : / mmHG Vent. Rate : 049 BPM Atrial Rate : 049 BPM P-R Int : 178 ms QRS Dur : 090 ms QT Int : 508 ms P-R-T Axes : 050 -04 126 degrees QTc Int : 458 ms SINUS BRADYCARDIA INFERIOR INFARCT , AGE UNDETERMINED T WAVE ABNORMALITY, CONSIDER LATERAL ISCHEMIA ABNORMAL ECG WHEN COMPARED WITH ECG OF 15-MAR-2019 21:35, VENT. RATE HAS DECREASED BY 39 BPM INFERIOR INFARCT IS NOW PRESENT Confirmed by Alvarado Jean MD ([id number]) on 03/16/2019 9:26:40 AM Referred By: Confirmed By:Alvarado Jean MD
[2019-03-16] MEDS: CEFAZOLIN 1 GM/D5W 1 GM/50 ML BAG IVPB SCH ×2 (09:36→19:33)
--- NOTE | 2019-03-16 09:54 | OP ---
DATE OF OPERATION: 03/16/2019 PREOPERATIVE DIAGNOSES: 1. Acute right cerebellar infarct/hemorrhage with mass effect. 2. Coronary artery disease, status post bypass, on chronic anticoagulation. 3. Abdominal aortic aneurysm, status post stent placement. 4. Hypertension. 5. Hypercholesterolemia. POSTOPERATIVE DIAGNOSES: 1. Acute right cerebellar infarct/hemorrhage with mass effect. 2. Coronary artery disease, status post bypass, on chronic anticoagulation. 3. Abdominal aortic aneurysm, status post stent placement. 4. Hypertension. 5. Hypercholesterolemia. ATTENDING SURGEON: Steffen Stephen MD PROCEDURE: 1. Right suboccipital craniectomy for debridement of posterior fossa and evacuation of the hematoma. 2. Microsurgical dissection with operative microscope with microsurgical technique. ESTIMATED BLOOD LOSS: 400 mL. ANESTHESIA: General endotracheal ANESTHESIOLOGIST: Georges Toscano MD TRANSFUSIONS: Packed cells 2 units, monoclonal platelets 2 units, FFP 1 unit. FINDINGS: 1. Unclotted blood in the posterior fossa. 2. Coagulopathy. INDICATIONS: The patient is a 68-year-old male who presented with increasing nausea, vomiting, and fever. He also has complained of diplopia. He deteriorated neurologically in the emergency room, was intubated for airway protection. CT scan of the head demonstrated posterior fossa hemorrhage and intraventricular hemorrhage. Because of his neurological deterioration and CT scan findings, the family has consented for posterior fossa decompression. Risks of surgery include, but are not limited to, bleeding, infection, stroke, coma, , and other risks of general anesthesia. The patients family understands the indication for procedure, the procedure in detail, risks and benefits, and alternatives for treatment of his condition, and wishes to proceed. No guarantee was given for a favorable outcome. They understand that the patient could in the operating room because of his severe thrombocytopenia and coagulopathy on Coumadin. He was given vitamin K and platelet and FFP transfusion prior to incision. Even with surgery, the patient may not be likely to recover neurological functions, and the patients family understands that but do want to give him a chance nevertheless. PROCEDURE IN DETAIL: After the patient was taken to the operating room, he was placed in the prone position with a Onofre Skull Clamp. The patients heart rate had slowed down to the low 40s preoperatively, and he was also initially hypertensive in the emergency room. After the suboccipital region was clipped, cleaned with alcohol, and then prepped with Betadine, the patient was sterilely draped. A curvilinear incision was made from the midline curving just to below the superior nuchal line on the right. Skin was infiltrated with 10 mL of 1% Xylocaine with epinephrine. At this point, the incision was opened with a No. 10 blade. The patient remained somewhat coagulopathic, and hemostasis was difficult. Two self-retaining retractors were inserted. The suboccipital muscle fascia was opened with cutting current, and the subperiosteal dissection was carried out with monopolar electrocautery. The retractors were deepened. Hemostasis was once again difficult and required both monopolar and bipolar electrocautery as well as thrombin- soaked powdered Gelfoam. Two small estella holes were made, and then craniectomy flap was made approximately 3-4 cm in diameter. The underlying dura showed underlying blood and was opened with No. 15 blade. The blood came out but was mostly liquid and not a clot. Corticectomy was made to further expose the underlying cerebellar tissue. There was some friable , possibly ischemic/necrotic cerebellar tissues underneath. This was debrided in a circumferential fashion. The wound was irrigated with a copious amount of irrigation. Hemostasis was extremely difficult. It was supplied by bipolar electrocautery and Gelfoam. Irrigation continued throughout the surgical procedure. This portion of the procedure was performed with the use of an operative microscope for both illumination and magnification. Microsurgical techniques were utilized. The pial surface was coagulated with bipolar electrocautery for hemostasis after total hemostasis was obtained with thrombin-soaked powdered Gelfoam. After the decompression was completed, a layer of Surgicel was layered in the resection cavity. A piece of DuraGen was laid over the dural defect and another layer of DuraSeal was laid over the DuraGen. This was done both for dural closure as well as for hemostasis. The suboccipital fascia was then closed with 0 Vicryl suture. Subcutaneous fascia was closed with 3-0 Vicryl suture and 2-0 Vicryl sutures. Skin was closed with 3-0 nylon interrupted suture. A sterile head wrap was applied. The Onofre Skull Clamp was removed. There was no bleeding from the pin sites. The patient remained intubated and was transported to the recovery room. All needle and lap counts were correct. The patient received 1 dose of 1 g Ancef prior to the incision. He had received 1 dose of 25 g of Mastisol in the emergency room. OR timeout procedure was followed. The patients family was updated on surgery and intraoperative findings as well as the patient's immediate postoperative condition. They had requested that a DNR order be included intraoperatively. This was respected. STEFFEN STEPHEN M.D. [id number]
[2019-03-16] MEDS ORDERED: SODIUM CHLORIDE 1,000 ML IV STA ×2 (09:59→10:00)
[2019-03-16] MEDS ORDERED: FUROSEMIDE 40 MG/4 ML INJECTABLE VIAL IVPUSH ONE ×2 (10:00→16:38)
[2019-03-16] MEDS ORDERED: FUROSEMIDE 40 MG/4 ML INJECTABLE VIAL ONE (10:13)
[2019-03-16] MEDS ORDERED: SODIUM POLYSTYRENE SULFONATE 15 GM/60 ML BOTTLE RC ONE (10:35)
[2019-03-16] MEDS: ALBUTEROL SO4 0.083% IH SOL 2.5 MG/3 ML VIAL.NEB. NEB SCH ×4 (11:15→16:54)
--- NOTE | 2019-03-16 11:39 | PN ---
Physical Exam: SUBJECTIVE: Patient seen and examined at bedside. Reported by nurse that patient 's HR was bradycardic to low 50s throughout surgery. Received 2U platelets, 2PRBCs, 1 FFP. Patient is intubated but NOT sedated, not responding to sternal rub. OBJECTIVE: Vital Signs Period Temp Pulse Resp BP Sys/Baker Pulse Ox Last 24 Hr 97.4 F-97.8 F 46-92 14-20 100-196/38-111 97-100 GENERAL: A&Ox0, intubated and not sedated, not arousable EYES: pupils fixed and dilated, do not respond to light, corneal reflex negative , scleral icterus noted ENT: Dry mucus membranes, ET tube in place LUNGS: coarse breath sounds, prior scar from thoracic surgery noted HEART: bradycardic but regular, loud systolic murmur present ABDOMEN: Soft, nontender, 2 large ecchymotic areas noted supraumbilically and in RUQ EXTREMITIES: 2+ pulses, no edema, diffuse petechiae noted, large ecchymotic areas on elbows and on thighs NEUROLOGICAL: unable to assess due to mental status, gag reflex and corneal reflex present, no babinski Laboratory Results - last 24 hr 03/15/19 03/15/19 03/15/19 21:44 23:00 23:00 WBC RBC Hgb Hct MCV MCH MCHC RDW Plt Count MPV PT with INR 14.70 H INR 1.24 H PTT (Actin FS) 33.9 Sodium 141 Potassium 4.6 Chloride 112 H Carbon Dioxide 20 L Anion Gap 10 BUN 44.2 H Creatinine 2.0 H Est GFR (CKD-EPI)AfAm 38.87 Est GFR (CKD-EPI)NonAf 33.54 POC Glucometer 220 Random Glucose 212 H Calcium 9.0 Total Bilirubin 1.2 H AST 15 ALT 10 L Alkaline Phosphatase 78 Creatine Kinase 96 Troponin I < 0.02 Total Protein 7.3 Albumin 4.3 Triglycerides Cholesterol Total LDL Cholesterol HDL Cholesterol Anti-A Titer Blood Type Antibody Screen Crossmatch 03/15/19 03/15/19 03/15/19 23:00 23:00 23:05 WBC 11.3 H RBC 3.14 L Hgb 10.4 L Hct 32.1 L MCV 102.4 H MCH 33.1 D MCHC 32.4 RDW 17.3 H Plt Count 15 L* D MPV 10.5 D PT with INR INR PTT (Actin FS) Sodium Potassium Chloride Carbon Dioxide Anion Gap BUN Creatinine Est GFR (CKD-EPI)AfAm Est GFR (CKD-EPI)NonAf POC Glucometer Random Glucose Calcium Total Bilirubin AST ALT Alkaline Phosphatase Creatine Kinase Troponin I Total Protein Albumin Triglycerides 139 Cholesterol 125 Total LDL Cholesterol 70 HDL Cholesterol 49 Anti-A Titer Cancelled Blood Type Cancelled Antibody Screen Cancelled Crossmatch See Detail 03/16/19 03/16/19 03/16/19 00:40 06:40 06:40 WBC 6.4 RBC 3.07 L Hgb 10.2 L Hct 29.9 L MCV 97.2 H MCH 33.2 MCHC 34.1 RDW 18.1 H Plt Count 79 L D MPV 7.9 D PT with INR 14.80 H INR 1.25 H PTT (Actin FS) Sodium Potassium Chloride Carbon Dioxide Anion Gap BUN Creatinine Est GFR (CKD-EPI)AfAm Est GFR (CKD-EPI)NonAf POC Glucometer Random Glucose Calcium Total Bilirubin AST ALT Alkaline Phosphatase Creatine Kinase Troponin I Total Protein Albumin Triglycerides Cholesterol Total LDL Cholesterol HDL Cholesterol Anti-A Titer Blood Type O POSITIVE Antibody Screen Negative Crossmatch See Detail 03/16/19 03/16/19 06:40 08:35 WBC RBC Hgb Hct MCV MCH MCHC RDW Plt Count MPV PT with INR INR PTT (Actin FS) Sodium 139 Potassium 7.4 H* 7.0 H* Chloride 113 H Carbon Dioxide 20 L Anion Gap 6 L BUN 41.6 H Creatinine 2.1 H Est GFR (CKD-EPI)AfAm 36.65 Est GFR (CKD-EPI)NonAf 31.62 POC Glucometer Random Glucose 142 H Calcium 7.6 L Total Bilirubin 1.7 H AST 18 ALT 14 Alkaline Phosphatase 59 Creatine Kinase Troponin I Total Protein 6.1 L Albumin 3.5 Triglycerides Cholesterol Total LDL Cholesterol HDL Cholesterol Anti-A Titer Blood Type Antibody Screen Crossmatch Active Medications Generic Name Dose Route Start Last Admin Trade Name Freq PRN Reason Stop Dose Admin Chlorhexidine Gluconate 1 applic 03/16/19 22:00 Hibiclens For Decolonization - TP HS CARISSA Fentanyl 50 mcg 03/16/19 03:55 Sublimaze Injection - IVPUSH [id number] PRN PAIN-PACU ORDER X 4 DOSES ONLY Nicardipine HCl 25 mg/ 250 mls @ 25 mls/hr 03/15/19 23:00 03/15/19 23:45 Dextrose IVPB 2.5 mg/hr TITR CARISSA 25 mls/hr Administration Protocol 2.5 MG/HR Octreotide Acetate 200 mcg/ 500 mls @ 20.833 mls/hr 03/15/19 23:59 03/15/19 23:57 Octreotide Acetate 1,000 mcg/ IVPB 20.833 mls/hr Dextrose Q24H CARISSA Administration Cefazolin Sodium 1 gm in 50 mls @ 100 mls/hr 03/16/19 10:00 03/16/19 09:36 Ancef 1 Gm Premixed Ivpb - IVPB 03/18/19 09:59 100 mls/hr Q8H-IV CARISSA Administration Morphine Sulfate 4 mg 03/16/19 04:43 Morphine Sulfate IVPUSH Q3H PRN PAIN LEVEL 4 - 6 Mupirocin 1 applic 03/16/19 10:00 Bactroban Ointment (For Decolonization) - NS 03/21/19 09:59 BID CARISSA Ondansetron HCl 4 mg 03/16/19 04:41 Zofran Injection IVPUSH Q6H PRN NAUSEA Pantoprazole Sodium 40 mg 03/16/19 10:00 03/16/19 09:09 Protonix Iv IVPUSH 40 mg DAILY CARISSA Administration ASSESSMENT/PLAN: 68 year old male with a history of cirrhosis, AAA repair, thrombocytopenia, on coumadin who initially presented to the hospital for headache, nausea and coffee ground emesis, went unresponsive and 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 Hyatt for suboccipital craniectomy, debridement of R posterior fossa tissue, drainage of unclotted blood; microdissection Neurological -not alert or oriented even off sedation -decorticate movements -minimal reflexes -POD0 suboccipital craniectomy, debridement of R posterior fossa tissue, drainage of unclotted blood; microdissection -will repeat head CT postop -keep systolic BP between 90-150 -continue cefazolin Cardiovascular -patient sinus bradycardia on EKG -on nicardipine ggt -monitor blood pressures due to likely GI bleed Pulmonary -intubated -saturating at 100% Gastroenterology -suspected upper gastrointestinal hemorrhage -continue octreotide ggt -continue pantoprazole ggt -monitor BP and H&H, currently stable -GI consulted Heme/Onc -thrombocytopenia down to 15 on admission, improved to 79 after 2 U platelets and postop, likely 2/2 cirrhosis -repeat CBC -anemia -transfuse to a hgb goal of 7 Renal -hyperkalemia of 7.4 -repeat 7.0 and after treatment went down to 5.3 -calcium gluconate given, insulin/D50, rectal kayexalate -renal consulted Prophylaxis -SCDS Disposition -monitor in ICU -palliative consultation -poor prognosis Case discussed w/ Dr. Cook Visit type - Emergency Visit Emergency Visit: Yes ED Registration Date: 03/15/19 Care time: The patient presented to the Emergency Department on the above date and was hospitalized for further evaluation of their emergent condition. - New Patient This patient is new to me today: Yes Date on this admission: 03/16/19 - Critical Care Critical Care patient: Yes Total Critical Care Time (in minutes): 60 Critical Care Statement: The care of this patient involved high complexity decision making to prevent further life threatening deterioration of the patient 's condition and/or to evaluate & treat vital organ system(s) failure or risk of failure. ATTENDING PHYSICIAN STATEMENT I saw and evaluated the patient. I reviewed the resident's note and discussed the case with the resident. I agree with the resident's findings and plan as documented. SUBJECTIVE: OBJECTIVE: ASSESSMENT AND PLAN:
[2019-03-16] MEDS ORDERED: SODIUM CHLORIDE 1,000 ML IV SCH ×2 (11:50→15:45)
[2019-03-16 11:51] LABS: HEMOGLOBIN 9.2 GM/dL (11.7-16.9); MCH 32.8 pg (25.7-33.7); MEAN CELL VOLUME 96.4 fl (80-96); MEAN PLT VOLUME 7.8 fl (7.5-11.1); PLATELET COUNT 70 K/MM3 (134-434); RDW 18.1 % (11.9-15.9); WHITE BLOOD COUNT 3.1 K/mm3 (4.0-10.0)
[2019-03-16 12:17] LABS: POTASSIUM 5.3 mmol/L (3.5-5.1)
[2019-03-16 12:24] VITALS: BMI 31.1
[2019-03-16 13:05] LABS: BLOOD UREA NITROGEN 41.8 mg/dL (7-18); CALCIUM 7.9 mg/dL (8.5-10.1); CREATININE 2.1 mg/dL (0.55-1.3)
--- NOTE | 2019-03-16 13:13 | CONSULT ---
Consult Consult Specialty:: Nephrology Reason for Consultation:: hyperkalemia - History of Present Illness Chief Complaint: presented with headache and vomiting History of Present Illness: Pt is a 68 year old make with pmhx of aaa repair, ckd, lover corrhosis, thrombocytopenia, htn, and hld who initially presented with headache and vomiting. He was found to have a right cerebellar hemorrhage. He was taken to the OR for decompression and had a craniotomy. He was found to be hyperkalemic this morning and I was called to evaluate him. Pt potassium was treated medically and the number improved. He is intubated and unable to give history. I reviewed the chart and discussed his care with the ICU and primary team. Pt was evaluate in the recovery room. Consult was called stat. - History Source History Provided By: Medical Record - Past Medical History Cardio/Vascular: Yes: HTN, Other (aaa) Hepatobiliary: Yes: Cirrhosis Heme/Onc: Yes: Thrombocytopenia - Past Surgical History Past Surgical History: Yes: AAA Repair - Alcohol/Substance Use Hx Alcohol Use: No - Smoking History Smoking history: Never smoked Have you smoked in the past 12 months: No If you are a former smoker, when did you quit?: 2005 Home Medications - Allergies Allergies/Adverse Reactions: Allergies Allergy/AdvReac Type Severity Reaction Status Date / Time Iodinated Contrast- Oral and Allergy Verified 03/15/19 23:19 IV Dye ALL RAW FRUITS Allergy Intermediate "ITCH Uncoded 03/15/19 20:49 INSIDE BODY" - Home Medications Home Medications: Ambulatory Orders Atorvastatin Ca [Lipitor] 20 mg PO HS 03/02/14 Carvedilol [Coreg] 6.25 mg PO DAILY 03/02/14 Allopurinol [Zyloprim -] 100 mg PO DAILY 06/20/15 Losartan/Hydrochlorothiazide [Losartan-Hctz 100-12.5 mg Tab] 1 tab PO DAILY 10/30 Aspirin [Aspirin EC] 81 mg PO DAILY #0 06/21/15 Colchicine 0.6 mg PO DAILY #7 tablet 06/21/15 Family Disease History - Family Disease History Family History: Unable to Obtain Review of Systems Unable to obtain ROS, reason: pt lethargic Physical Exam Vital Signs: Vital Signs Temperature 97.8 F 03/16/19 04:36 Pulse Rate 47 L 03/16/19 07:50 Respiratory Rate 14 03/16/19 07:50 Blood Pressure 120/38 L 03/16/19 07:50 O2 Sat by Pulse Oximetry (%) 100 03/16/19 07:50 Constitutional: Yes: Calm Eyes: Yes: Cataracts, Other (pupils not reactive) Neck: Yes: Supple Cardiovascular: Yes: Bradycardia, S1, S2 Respiratory: Yes: Intubated, Mechanically Ventilated Gastrointestinal: Yes: Soft, Abdomen, Obese Renal/: Yes: Johnson Present Musculoskeletal: Yes: Muscle Weakness Edema: No Neurological: Yes: Lethargy Labs: CBC, BMP 03/16/19 11:15 03/16/19 11:15 Laboratory Tests 08/02/14 11/03/14 11/10/14 08:50 08:35 09:21 WBC Hgb Plt Count Sodium Potassium Carbon Dioxide Creatinine 1.6 H D 1.6 H 1.5 H 12/25/17 03/15/19 03/15/19 10:02 23:00 23:00 WBC 11.3 H Hgb Plt Count 15 L* D Sodium 141 Potassium 4.6 Carbon Dioxide 20 L Creatinine 1.6 H 2.0 H 03/16/19 03/16/19 03/16/19 06:40 06:40 08:35 WBC Hgb Plt Count 79 L D Sodium Potassium 7.4 H* 7.0 H* Carbon Dioxide Creatinine 2.1 H 03/16/19 03/16/19 11:15 11:15 WBC Hgb 9.2 L Plt Count 70 L Sodium 142 Potassium 5.3 H Carbon Dioxide Creatinine 2.1 H Imaging - Results Cat Scan: Report Reviewed Problem List - Problems (1) CKD (chronic kidney disease) Code(s): N18.9 - CHRONIC KIDNEY DISEASE, UNSPECIFIED (2) Hyperkalemia Code(s): E87.5 - HYPERKALEMIA (3) Brain bleed Code(s): I61.9 - NONTRAUMATIC INTRACEREBRAL HEMORRHAGE, UNSPECIFIED (4) Nausea & vomiting Code(s): R11.2 - NAUSEA WITH VOMITING, UNSPECIFIED Qualifiers: Vomiting type: bilious vomiting Qualified Code(s): R11.14 - Bilious vomiting (5) Thrombocytopenia Code(s): D69.6 - THROMBOCYTOPENIA, UNSPECIFIED Assessment/Plan Current Medications Generic Name Dose Route Start Last Admin Trade Name Freq PRN Reason Stop Dose Admin Chlorhexidine Gluconate 1 applic 03/16/19 22:00 Hibiclens For Decolonization - TP HS CARISSA Fentanyl 50 mcg 03/16/19 03:55 Sublimaze Injection - IVPUSH [id number] PRN PAIN-PACU ORDER X 4 DOSES ONLY Nicardipine HCl 25 mg/ 250 mls @ 25 mls/hr 03/15/19 23:00 03/15/19 23:45 Dextrose IVPB 2.5 mg/hr TITR CARISSA 25 mls/hr Administration Protocol 2.5 MG/HR Octreotide Acetate 200 mcg/ 500 mls @ 20.833 mls/hr 03/15/19 23:59 03/15/19 23:57 Octreotide Acetate 1,000 mcg/ IVPB 20.833 mls/hr Dextrose Q24H CARISSA Administration Cefazolin Sodium 1 gm in 50 mls @ 100 mls/hr 03/16/19 10:00 03/16/19 09:36 Ancef 1 Gm Premixed Ivpb - IVPB 03/18/19 09:59 100 mls/hr Q8H-IV CARISSA Administration Morphine Sulfate 4 mg 03/16/19 04:43 Morphine Sulfate IVPUSH Q3H PRN PAIN LEVEL 4 - 6 Mupirocin 1 applic 03/16/19 10:00 Bactroban Ointment (For Decolonization) - NS 03/21/19 09:59 BID CARISSA Ondansetron HCl 4 mg 03/16/19 04:41 Zofran Injection IVPUSH Q6H PRN NAUSEA Pantoprazole Sodium 40 mg 03/16/19 10:00 03/16/19 09:09 Protonix Iv IVPUSH 40 mg DAILY CARISSA Administration Impression 1. hyperkalemia 2. ckd 3. jennifer 4. hemorrhagic cva 5. s/p craniotomy 6. htn 7. hx aaa 8. cirrhosis 9. respiratory failure Plan - potassium treated medically and is improved - pulse rate has improved with correction of potassium, cont to monitor - no need for kayexylate at this point - cont fluids and monitor urine output - vent support - pt going to ICU - cont to monitor lytes - discussed with ICU team - bp parameters per neurosurg, ICU team managing bp
--- NOTE | 2019-03-16 13:36 | PN ---
Teaching Attending Note Name of Resident: Georges Brito ATTENDING PHYSICIAN STATEMENT I saw and evaluated the patient. I reviewed the resident's note and discussed the case with the resident. I agree with the resident's findings and plan as documented. SUBJECTIVE: Patient seen and examined in the PACU. Events noted. Intubated, AC Mode of vent. Not sedated but minimally responsive to noxious stimuli. Pupils 3 to 4, minimally to non-responsive. OBJECTIVE: Intake & Output 03/13/19 03/14/19 03/15/19 03/16/19 23:59 23:59 23:59 23:59 Intake Total 2614 Output Total 1450 Balance 1164 Weight 205 lb Last Vital Signs Temp Pulse Resp BP Pulse Ox 97.8 F 47 L 14 120/38 L 100 03/16/19 04:36 03/16/19 07:50 03/16/19 07:50 03/16/19 07:50 03/16/19 07:50 Active Medications Chlorhexidine Gluconate (Hibiclens For Decolonization -) 1 applic TP HS CARISSA Fentanyl (Sublimaze Injection -) 50 mcg IVPUSH [id number] PRN PRN Reason: PAIN-PACU ORDER X 4 DOSES ONLY Nicardipine HCl 25 mg/ (Dextrose) 250 mls @ 25 mls/hr IVPB TITR CARISSA; Protocol Last Admin: 03/15/19 23:45 Dose: 2.5 mg/hr, 25 mls/hr Octreotide Acetate 200 mcg/Octreotide Acetate 1,000 mcg/Dextrose 500 mls @ 20.833 mls/hr IVPB Q24H CARISSA Last Admin: 03/15/19 23:57 Dose: 20.833 mls/hr Cefazolin Sodium (Ancef 1 Gm Premixed Ivpb -) 1 gm in 50 mls @ 100 mls/hr IVPB Q8H-IV CARISSA Stop: 03/18/19 09:59 Last Admin: 03/16/19 09:36 Dose: 100 mls/hr Morphine Sulfate (Morphine Sulfate) 4 mg IVPUSH Q3H PRN PRN Reason: PAIN LEVEL 4 - 6 Mupirocin (Bactroban Ointment (For Decolonization) -) 1 applic NS BID CARISSA Stop: 03/21/19 09:59 Ondansetron HCl (Zofran Injection) 4 mg IVPUSH Q6H PRN PRN Reason: NAUSEA Pantoprazole Sodium (Protonix Iv) 40 mg IVPUSH DAILY CARISSA Last Admin: 03/16/19 09:09 Dose: 40 mg GENERAL: Intubated, not sedated, minimally responsive EYES: pupils fixed and do not respond to light, corneal reflex negative, mild scleral icterus noted ENT: Dry mucus membranes, ET tube in place LUNGS: coarse breath sounds, prior scar from thoracic surgery noted HEART: bradycardic but regular, (+) ESM ABDOMEN: Soft, ND, (+) BS, (+) ecchymotic areas noted EXTREMITIES: 2+ pulses, no edema, diffuse petechiae noted, large ecchymotic areas on elbows and on thighs NEUROLOGICAL: Minimally responsive, (+) gag reflex, poor corneal reflex Laboratory Results - last 24 hr 03/15/19 03/15/19 03/15/19 21:44 23:00 23:00 WBC RBC Hgb Hct MCV MCH MCHC RDW Plt Count MPV PT with INR 14.70 H INR 1.24 H PTT (Actin FS) 33.9 Sodium 141 Potassium 4.6 Chloride 112 H Carbon Dioxide 20 L Anion Gap 10 BUN 44.2 H Creatinine 2.0 H Est GFR (CKD-EPI)AfAm 38.87 Est GFR (CKD-EPI)NonAf 33.54 POC Glucometer 220 Random Glucose 212 H Calcium 9.0 Total Bilirubin 1.2 H AST 15 ALT 10 L Alkaline Phosphatase 78 Creatine Kinase 96 Troponin I < 0.02 Total Protein 7.3 Albumin 4.3 Triglycerides Cholesterol Total LDL Cholesterol HDL Cholesterol Anti-A Titer Blood Type Antibody Screen Crossmatch 03/15/19 03/15/19 03/15/19 23:00 23:00 23:05 WBC 11.3 H RBC 3.14 L Hgb 10.4 L Hct 32.1 L MCV 102.4 H MCH 33.1 D MCHC 32.4 RDW 17.3 H Plt Count 15 L* D MPV 10.5 D PT with INR INR PTT (Actin FS) Sodium Potassium Chloride Carbon Dioxide Anion Gap BUN Creatinine Est GFR (CKD-EPI)AfAm Est GFR (CKD-EPI)NonAf POC Glucometer Random Glucose Calcium Total Bilirubin AST ALT Alkaline Phosphatase Creatine Kinase Troponin I Total Protein Albumin Triglycerides 139 Cholesterol 125 Total LDL Cholesterol 70 HDL Cholesterol 49 Anti-A Titer Cancelled Blood Type Cancelled Antibody Screen Cancelled Crossmatch See Detail 03/16/19 03/16/19 03/16/19 00:40 06:40 06:40 WBC 6.4 RBC 3.07 L Hgb 10.2 L Hct 29.9 L MCV 97.2 H MCH 33.2 MCHC 34.1 RDW 18.1 H Plt Count 79 L D MPV 7.9 D PT with INR 14.80 H INR 1.25 H PTT (Actin FS) Sodium Potassium Chloride Carbon Dioxide Anion Gap BUN Creatinine Est GFR (CKD-EPI)AfAm Est GFR (CKD-EPI)NonAf POC Glucometer Random Glucose Calcium Total Bilirubin AST ALT Alkaline Phosphatase Creatine Kinase Troponin I Total Protein Albumin Triglycerides Cholesterol Total LDL Cholesterol HDL Cholesterol Anti-A Titer Blood Type O POSITIVE Antibody Screen Negative Crossmatch See Detail 03/16/19 03/16/19 06:40 08:35 WBC RBC Hgb Hct MCV MCH MCHC RDW Plt Count MPV PT with INR INR PTT (Actin FS) Sodium 139 Potassium 7.4 H* 7.0 H* Chloride 113 H Carbon Dioxide 20 L Anion Gap 6 L BUN 41.6 H Creatinine 2.1 H Est GFR (CKD-EPI)AfAm 36.65 Est GFR (CKD-EPI)NonAf 31.62 POC Glucometer Random Glucose 142 H Calcium 7.6 L Total Bilirubin 1.7 H AST 18 ALT 14 Alkaline Phosphatase 59 Creatine Kinase Troponin I Total Protein 6.1 L Albumin 3.5 Triglycerides Cholesterol Total LDL Cholesterol HDL Cholesterol Anti-A Titer Blood Type Antibody Screen Crossmatch ASSESSMENT/PLAN: POD #0: Suboccipital craniectomy, debridement of Right posterior fossa tissue, drainage of unclotted blood; microdissection due to a likely cerebellar hypertensive stroke/hemorrhage with mass effect History of cirrhosis AAA repair Severe thrombocytopenia Previously on coumadi (reason not known) Suspected UGIB Severe Hyperkalemia Sinus Bradycardia HTN Goal: SBP < 140 mmHg. Currently on Cardene drip Follow Neuro exam: minimal response at this time and has been off sedation since early AM AC mode of vent, not a candidate for wean trials Mechanical VTE prophylaxis Post-op ABX Normal transfusion thresholds PPI Noted Octreotide Close monitoring of K+ Unfortunately the overall prognosis appears grave for meaningful survival Requires ICU monitoring Dr Cook Critical care time spent in reviewing chart, evaluating patient and formulating plan - 36 minutes.
[2019-03-16 15:15] LABS: EPI CELLS 0.3 /HPF (0-5/HPF); HYALINE CASTS 0 /lpf (0-8); URINE APPEARANCE CLEAR; URINE BACTERIA 0.8 /hpf (NEGATIVE); URINE BILIRUBIN NEGATIVE (NEGATIVE); URINE COLOR YELLOW; URINE GLUCOSE (UA) NEGATIVE (NEGATIVE); URINE KETONE NEGATIVE (NEGATIVE); URINE LEUK ESTERASE NEGATIVE (NEGATIVE); URINE NITRITE NEGATIVE (NEGATIVE); URINE PROTEIN NEGATIVE (NEGATIVE); URINE RBC 1 /hpf (0-4); URINE UROBILINOGEN 0.2 mg/dL (0.2-1.0); URINE WBC 0 /hpf (0-5)
--- NOTE | 2019-03-16 15:35 | PN ---
Physical Exam: SUBJECTIVE: Patient seen and examined at bed side in Pacu intubated , not responding to verbal or painful stimuli , OBJECTIVE: Vital Signs Period Temp Pulse Resp BP Sys/Baker Pulse Ox Last 24 Hr 97.4 F-97.9 F 46-92 14-20 100-196/38-111 97-100 GENERAL: intubated HEAD: S.P Cranitomy with ICH evacuation , cover with gauze EYES: fixed pupils , minimally responsive ENT:intubated LUNGS:decrease breath sounds at the bases HEART: arias cardic ABDOMEN: Soft, nontender, nondistended, normoactive bowel sounds,echymosis EXTREMITIES: 2+ pulses, warm, well-perfused, no edema. NEUROLOGICAL:not responindg , Fixed pupuils , hyporeflexia, babinski up on left leg , not responnding on right leg Laboratory Results - last 24 hr 03/15/19 03/15/19 03/15/19 21:44 23:00 23:00 WBC RBC Hgb Hct MCV MCH MCHC RDW Plt Count MPV PT with INR 14.70 H INR 1.24 H PTT (Actin FS) 33.9 Sodium 141 Potassium 4.6 Chloride 112 H Carbon Dioxide 20 L Anion Gap 10 BUN 44.2 H Creatinine 2.0 H Est GFR (CKD-EPI)AfAm 38.87 Est GFR (CKD-EPI)NonAf 33.54 POC Glucometer 220 Random Glucose 212 H Calcium 9.0 Total Bilirubin 1.2 H AST 15 ALT 10 L Alkaline Phosphatase 78 Creatine Kinase 96 Troponin I < 0.02 Total Protein 7.3 Albumin 4.3 Triglycerides Cholesterol Total LDL Cholesterol HDL Cholesterol Urine Color Urine Appearance Urine pH Ur Specific [place] Urine Protein Urine Glucose (UA) Urine Ketones Urine Blood Urine Nitrite Urine Bilirubin Urine Urobilinogen Ur Leukocyte Esterase Urine WBC (Auto) Urine RBC (Auto) Urine Casts (Auto) U Epithel Cells (Auto) Urine Bacteria (Auto) Anti-A Titer Blood Type Antibody Screen Crossmatch 03/15/19 03/15/19 03/15/19 23:00 23:00 23:05 WBC 11.3 H RBC 3.14 L Hgb 10.4 L Hct 32.1 L MCV 102.4 H MCH 33.1 D MCHC 32.4 RDW 17.3 H Plt Count 15 L* D MPV 10.5 D PT with INR INR PTT (Actin FS) Sodium Potassium Chloride Carbon Dioxide Anion Gap BUN Creatinine Est GFR (CKD-EPI)AfAm Est GFR (CKD-EPI)NonAf POC Glucometer Random Glucose Calcium Total Bilirubin AST ALT Alkaline Phosphatase Creatine Kinase Troponin I Total Protein Albumin Triglycerides 139 Cholesterol 125 Total LDL Cholesterol 70 HDL Cholesterol 49 Urine Color Urine Appearance Urine pH Ur Specific [place] Urine Protein Urine Glucose (UA) Urine Ketones Urine Blood Urine Nitrite Urine Bilirubin Urine Urobilinogen Ur Leukocyte Esterase Urine WBC (Auto) Urine RBC (Auto) Urine Casts (Auto) U Epithel Cells (Auto) Urine Bacteria (Auto) Anti-A Titer Cancelled Blood Type Cancelled Antibody Screen Cancelled Crossmatch See Detail 03/16/19 03/16/19 03/16/19 00:40 06:40 06:40 WBC 6.4 RBC 3.07 L Hgb 10.2 L Hct 29.9 L MCV 97.2 H MCH 33.2 MCHC 34.1 RDW 18.1 H Plt Count 79 L D MPV 7.9 D PT with INR 14.80 H INR 1.25 H PTT (Actin FS) Sodium Potassium Chloride Carbon Dioxide Anion Gap BUN Creatinine Est GFR (CKD-EPI)AfAm Est GFR (CKD-EPI)NonAf POC Glucometer Random Glucose Calcium Total Bilirubin AST ALT Alkaline Phosphatase Creatine Kinase Troponin I Total Protein Albumin Triglycerides Cholesterol Total LDL Cholesterol HDL Cholesterol Urine Color Urine Appearance Urine pH Ur Specific [place] Urine Protein Urine Glucose (UA) Urine Ketones Urine Blood Urine Nitrite Urine Bilirubin Urine Urobilinogen Ur Leukocyte Esterase Urine WBC (Auto) Urine RBC (Auto) Urine Casts (Auto) U Epithel Cells (Auto) Urine Bacteria (Auto) Anti-A Titer Blood Type O POSITIVE Antibody Screen Negative Crossmatch See Detail 03/16/19 03/16/19 03/16/19 06:40 08:35 11:15 WBC RBC Hgb Hct MCV MCH MCHC RDW Plt Count MPV PT with INR INR PTT (Actin FS) Sodium 139 142 Potassium 7.4 H* 7.0 H* 5.3 H Chloride 113 H 114 H Carbon Dioxide 20 L 21 Anion Gap 6 L 6 L BUN 41.6 H 41.8 H Creatinine 2.1 H 2.1 H Est GFR (CKD-EPI)AfAm 36.65 36.65 Est GFR (CKD-EPI)NonAf 31.62 31.62 POC Glucometer Random Glucose 142 H 226 H Calcium 7.6 L 7.9 L Total Bilirubin 1.7 H AST 18 ALT 14 Alkaline Phosphatase 59 Creatine Kinase Troponin I Total Protein 6.1 L Albumin 3.5 Triglycerides Cholesterol Total LDL Cholesterol HDL Cholesterol Urine Color Urine Appearance Urine pH Ur Specific [place] Urine Protein Urine Glucose (UA) Urine Ketones Urine Blood Urine Nitrite Urine Bilirubin Urine Urobilinogen Ur Leukocyte Esterase Urine WBC (Auto) Urine RBC (Auto) Urine Casts (Auto) U Epithel Cells (Auto) Urine Bacteria (Auto) Anti-A Titer Blood Type Antibody Screen Crossmatch 03/16/19 03/16/19 11:15 14:15 WBC 3.1 L RBC 2.80 L Hgb 9.2 L Hct 27.0 L MCV 96.4 H MCH 32.8 MCHC 34.0 RDW 18.1 H Plt Count 70 L MPV 7.8 PT with INR INR PTT (Actin FS) Sodium Potassium Chloride Carbon Dioxide Anion Gap BUN Creatinine Est GFR (CKD-EPI)AfAm Est GFR (CKD-EPI)NonAf POC Glucometer Random Glucose Calcium Total Bilirubin AST ALT Alkaline Phosphatase Creatine Kinase Troponin I Total Protein Albumin Triglycerides Cholesterol Total LDL Cholesterol HDL Cholesterol Urine Color Yellow Urine Appearance Clear Urine pH 5.0 Ur Specific [place] 1.009 L Urine Protein Negative Urine Glucose (UA) Negative Urine Ketones Negative Urine Blood Trace Urine Nitrite Negative Urine Bilirubin Negative Urine Urobilinogen 0.2 Ur Leukocyte Esterase Negative Urine WBC (Auto) 0 Urine RBC (Auto) 1 Urine Casts (Auto) 0 U Epithel Cells (Auto) 0.3 Urine Bacteria (Auto) 0.8 Anti-A Titer Blood Type Antibody Screen Crossmatch Active Medications Generic Name Dose Route Start Last Admin Trade Name Freq PRN Reason Stop Dose Admin Chlorhexidine Gluconate 1 applic 03/16/19 22:00 Hibiclens For Decolonization - TP HS CARISSA Fentanyl 50 mcg 03/16/19 03:55 Sublimaze Injection - IVPUSH [id number] PRN PAIN-PACU ORDER X 4 DOSES ONLY Nicardipine HCl 25 mg/ 250 mls @ 25 mls/hr 03/15/19 23:00 03/15/19 23:45 Dextrose IVPB 2.5 mg/hr TITR CARISSA 25 mls/hr Administration Protocol 2.5 MG/HR Octreotide Acetate 200 mcg/ 500 mls @ 20.833 mls/hr 03/15/19 23:59 03/15/19 23:57 Octreotide Acetate 1,000 mcg/ IVPB 20.833 mls/hr Dextrose Q24H CARISSA Administration Cefazolin Sodium 1 gm in 50 mls @ 100 mls/hr 03/16/19 10:00 03/16/19 09:36 Ancef 1 Gm Premixed Ivpb - IVPB 03/18/19 09:59 100 mls/hr Q8H-IV CARISSA Administration Morphine Sulfate 4 mg 03/16/19 04:43 Morphine Sulfate IVPUSH Q3H PRN PAIN LEVEL 4 - 6 Mupirocin 1 applic 03/16/19 10:00 Bactroban Ointment (For Decolonization) - NS 03/21/19 09:59 BID CARISSA Ondansetron HCl 4 mg 03/16/19 04:41 Zofran Injection IVPUSH Q6H PRN NAUSEA Pantoprazole Sodium 40 mg 03/16/19 10:00 03/16/19 09:09 Protonix Iv IVPUSH 40 mg DAILY CARISSA Administration CBC, BMP 03/16/19 11:15 03/16/19 11:15 ASSESSMENT/PLAN: # POD#0 Suboccipital craniectomy, debridement of Right posterior fossa tissue, drainage of unclotted blood; microdissection due to a likely cerebellar hypertensive stroke/hemorrhage with mass effect # Hyperkalemia 7.2 treated medically with D5 and Lasix 40 , Albuterol X3 , Gluconate ca amd trend down to 5.3 , cont to monitor BMP # Anemia # thrombocytopenia #Upper GI Bleed likely 2/2 cirrhosis # Cirrhosis # AAA S.p repeair but is larger than before 6.1 compare to 5.5 # HTN # HLD # DNR # ALEXIS Plan : * monitor in ICU * maintain BP 90-150 systolic * Nicardipine * Octeriotide * IV fluids NS (was on RL that contain K ) * Cefazolin 1gm IV Q 8hr * PPI , Zofran , * Morphine 4 mg IV Q 4hr * Monitor H/H * repeat lab in AM * DVTS proph mechanical * poor prognosis Visit type - Emergency Visit Emergency Visit: Yes ED Registration Date: 03/15/19 Care time: The patient presented to the Emergency Department on the above date and was hospitalized for further evaluation of their emergent condition. - New Patient This patient is new to me today: Yes Date on this admission: 03/16/19 - Critical Care Critical Care patient: Yes Total Critical Care Time (in minutes): 45 Critical Care Statement: The care of this patient involved high complexity decision making to prevent further life threatening deterioration of the patient 's condition and/or to evaluate & treat vital organ system(s) failure or risk of failure. - Discharge Referral Referred to [facility] Med P.C.: No ATTENDING PHYSICIAN STATEMENT I saw and evaluated the patient. I reviewed the resident's note and discussed the case with the resident. I agree with the resident's findings and plan as documented. SUBJECTIVE: OBJECTIVE: ASSESSMENT AND PLAN:
--- NOTE | 2019-03-16 16:40 | PN ---
Progress Note (short form) - Note Progress Note: NEUROSURGERY In PACU PE: Intubated; 163/67, 50's, O2 sat 100% I/O- + 2500 CV- RR; Lungs- decreased BS at bases; Abd- benign, obese; Ext- no sign of DVT CN- B pupil 3 mm minimal to non-reactive; no gag; no Doll's; Motor- occ head movement, B leg slight flexing to pain WBC 3.1, Hgb 9.2, platelet 70k, received more platelet, INR 1.25, received more FFP Probable cerebellar hypertensive stroke/ICH s/p posterior fossa craniectomy Coagulopathy and thrombocytopenia Prognosis poor regardless F/u head CT Lasix 20 mg ivp SBP range 100-150 Care d/w bedside RN's Condition d/w daughter
--- NOTE | 2019-03-16 16:49 | CON.GI ---
Consult Consult Specialty:: GI Referred by:: Hospitalist Service Reason for Consultation:: "Cirrhosis", coffee ground vomitus - History of Present Illness Chief Complaint: Patient non verbal History of Present Illness: 68M admitted through [facility] last night for evaluation of headache, persistent N/ V. had vision changes in ED, bright red vomitus ws described after multiple episodes of the previous vomiting. BP was markedly elevated on admission and he had a platelet count of 15K. he is on ASA as well. Was noted to have in ICH and was take to the OR by BERENICE. Called to evaluate because he has a history of cirrhosis. It is unclear who follows him for cirrhosis. He had an EGD in [address] Florez that failed to reveal varices. he had a colonosocpy in 2014 that led to the removal of colon polyps. his Hgb appears to he at his baseline. There has been no overt bleeding. He is still in the PACU - History Source History Provided By: Medical Record Limitations to Obtaining History: Other (Non verbal, intubated) - Past Medical History Cardio/Vascular: Yes: HTN, Other (aaa) Gastrointestinal: Yes: Other (kate's esophagus, colon polyps) Hepatobiliary: Yes: Cirrhosis - Past Surgical History Past Surgical History: Yes: AAA Repair - Alcohol/Substance Use Hx Alcohol Use: No - Smoking History Smoking history: Never smoked Have you smoked in the past 12 months: No If you are a former smoker, when did you quit?: 2005 Home Medications - Allergies Allergies/Adverse Reactions: Allergies Allergy/AdvReac Type Severity Reaction Status Date / Time Iodinated Contrast- Oral and Allergy Verified 03/15/19 23:19 IV Dye ALL RAW FRUITS Allergy Intermediate "ITCH Uncoded 03/15/19 20:49 INSIDE BODY" - Home Medications Home Medications: Ambulatory Orders Atorvastatin Ca [Lipitor] 20 mg PO HS 03/02/14 Carvedilol [Coreg] 6.25 mg PO DAILY 03/02/14 Allopurinol [Zyloprim -] 100 mg PO DAILY 06/20/15 Losartan/Hydrochlorothiazide [Losartan-Hctz 100-12.5 mg Tab] 1 tab PO DAILY 10/30 Aspirin [Aspirin EC] 81 mg PO DAILY #0 06/21/15 Colchicine 0.6 mg PO DAILY #7 tablet 06/21/15 Family Disease History - Family Disease History Family History: Unable to Obtain Review of Systems Unable to obtain ROS, reason: non verbal on vent Physical Exam-GI Vital Signs: Vital Signs Temperature 97.7 F 03/16/19 12:00 Pulse Rate 56 L 03/16/19 15:00 Respiratory Rate 14 03/16/19 15:00 Blood Pressure 157/54 L 03/16/19 15:00 O2 Sat by Pulse Oximetry (%) 100 03/16/19 09:00 Constitutional: Yes: Other (Intubated) Eyes: No: Sclera Icterus Cardiovascular: Yes: Bradycardia, Murmur Respiratory: Yes: Diminished (at bases bilaterally) Gastrointestinal Inspection: Yes: Other (ecchymoses along abdominal wall). No: Scars ...Auscultate: Yes: Normoactive Bowel Sounds ...Palpate: Yes: Soft. No: Hepatomegaly, Splenomegaly ...Percussion: No: Tympanitic Edema: No (No LE edema) Neurological: Yes: Other (Intubated) Labs: CBC, BMP 03/16/19 11:15 INR, PTT INR 1.25 (0.83-1.09) H 03/16/19 06:40 Hepatic Panel Total Bilirubin 1.7 mg/dL (0.2-1) H 03/16/19 06:40 AST 18 U/L (15-37) 03/16/19 06:40 ALT 14 U/L (13-61) 03/16/19 06:40 Alkaline Phosphatase 59 U/L (45-117) 03/16/19 06:40 Albumin 3.5 g/dl (3.4-5.0) 03/16/19 06:40 CBC, [facility] 03/16/19 11:15 Problem List - Problems (1) GI bleed Assessment/Plan: No overt bleeding. By description, It sounds as though he had persistent N/V, possibly precipitated by rising intracranial pressure due to ICH in setting of thrombocytopenia and ASA therapy, with later episodes of vomiting being bloody. ? kris stark Continue supportive measures No GI interventions planned at this time Monitor for overt bleeding Obtain more information about his cirrhosis diagnosis. Where he is followed, any more recent endoscopies, etc. Code(s): K92.2 - GASTROINTESTINAL HEMORRHAGE, UNSPECIFIED
[2019-03-16 17:01] LABS: BLOOD UREA NITROGEN 41.9 mg/dL (7-18); CALCIUM 8.4 mg/dL (8.5-10.1); POTASSIUM 5.2 mmol/L (3.5-5.1)
[2019-03-16] MEDS: MUPIROCIN 2% TOPICAL OINTMENT FOR DECOLONIZATION NS SCH ×2 (18:10→22:01)
[2019-03-16] MEDS ORDERED: PT OWN MED DRAWER 7, Y5N ONE (18:16)
[2019-03-16] MEDS ORDERED: DEXTROSE 5%-WATER - 50 ML IVPB ONE (18:24)
[2019-03-16] MEDS: CEFAZOLIN 1 GM in DEXTROSE 5%-WATER - 50 ML IVPB SCH (18:25)
--- NOTE | 2019-03-16 18:25 | PN ---
Teaching Attending Note Name of Resident: Trino Freitas ATTENDING PHYSICIAN STATEMENT I saw and evaluated the patient. I reviewed the resident's note and discussed the case with the resident. I agree with the resident's findings and plan as documented. SUBJECTIVE: unable to obtain OBJECTIVE: Last Vital Signs Temp Pulse Resp BP Pulse Ox 36.7 C 57 L 18 122/54 L 100 03/16/19 16:00 03/16/19 18:00 03/16/19 18:00 03/16/19 18:00 03/16/19 09:00 Gen: intubated and sedated HEENT: fixed pupils Pulm: mechanically ventilated w/o w/r/r CV: bradycardia w/o m/r/g Abd: +bs, s/nt/nd Ext: no c/c/e CBC, BMP 03/16/19 11:15 03/16/19 16:10 45 minutes spent in critical care time with this patient Problem List - Problems (1) Intracranial hemorrhage Assessment/Plan: -s/p neurosurgical intervention -blood pressure control with nicardipine -neurosurgery following Code(s): I62.9 - NONTRAUMATIC INTRACRANIAL HEMORRHAGE, UNSPECIFIED (2) GI bleed Assessment/Plan: -appreciate GI assistance -continue IV protonix and octreotide -monitor H/H Code(s): K92.2 - GASTROINTESTINAL HEMORRHAGE, UNSPECIFIED (3) Hyperkalemia Assessment/Plan: -case d/w Dr Mendosa -s/p regular insulin + D50, sodium bicarbonate, calcium gluconate, albuterol, lasix with IVF -improving -continue monitoring Code(s): E87.5 - HYPERKALEMIA (4) Thrombocytopenia Assessment/Plan: -s/p transfusion Code(s): D69.6 - THROMBOCYTOPENIA, UNSPECIFIED (5) CKD (chronic kidney disease) Assessment/Plan: -ALEXIS on CKD -continue hydration Code(s): N18.9 - CHRONIC KIDNEY DISEASE, UNSPECIFIED (6) Acute respiratory failure with hypoxia Assessment/Plan: -continue mechanical ventilation Code(s): J96.01 - ACUTE RESPIRATORY FAILURE WITH HYPOXIA
[2019-03-16] MEDS: MANNITOL 25% 12.5 GM/50 ML VIAL IVPB SCH (20:25)
[2019-03-16] MEDS: OCTREOTIDE ACETATE 200 MCG, OCTREOTIDE ACETATE 1,000 MCG in DEXTROSE 5%-WATER - 496 ML IVPB SCH ×2 (22:00→23:31)
[2019-03-16] MEDS ORDERED: CHLORHEXIDINE GLUCONATE 4% CLEANSER FOR DECOLONIZATION TP SCH (22:00)
[2019-03-16] MEDS: NICARDIPINE 25 MG in DEXTROSE 5%-WATER - 240 ML IVPB SCH (22:02)
[2019-03-16 23:10] LABS: BLOOD UREA NITROGEN 45.9 mg/dL (7-18); CALCIUM 8.3 mg/dL (8.5-10.1); CREATININE 2.1 mg/dL (0.55-1.3); POTASSIUM 5.2 mmol/L (3.5-5.1)
[2019-03-16] MEDS ORDERED: SODIUM CHLORIDE 0.45% 1,000 ML IV SCH (23:30)
[2019-03-17] MEDS: MANNITOL 25% 12.5 GM/50 ML VIAL IVPB SCH ×3 (00:09→13:39)
[2019-03-17] MEDS ORDERED: ceFAZolin SODIUM 1 GM VIAL ONE ×2 (01:38→08:32)
[2019-03-17] MEDS ORDERED: DEXTROSE 5%-WATER - 50 ML IVPB ONE ×2 (01:39→08:32)
[2019-03-17] MEDS: CEFAZOLIN 1 GM in DEXTROSE 5%-WATER - 50 ML IVPB SCH ×2 (01:56→10:12)
[2019-03-17 06:53] LABS: HEMATOCRIT 26.1 % (35.4-49); HEMOGLOBIN 8.9 GM/dL (11.7-16.9); MCH 33.5 pg (25.7-33.7); MCHC 34.2 g/dl (32.0-35.9); MEAN CELL VOLUME 97.9 fl (80-96); MEAN PLT VOLUME 8.1 fl (7.5-11.1); PLATELET COUNT 49 K/MM3 (134-434); RBC 2.67 M/mm3 (4.00-5.60); RDW 17.4 % (11.9-15.9); WHITE BLOOD COUNT 4.4 K/mm3 (4.0-10.0)
[2019-03-17 08:03] LABS: CALCIUM 8.4 mg/dL (8.5-10.1); CREATININE 2.2 mg/dL (0.55-1.3); MAGNESIUM 1.7 mg/dL (1.8-2.4); PHOSPHOROUS 3.5 mg/dL (2.5-4.9); POTASSIUM 5.2 mmol/L (3.5-5.1)
--- NOTE | 2019-03-17 08:25 | PN ---
Progress Note (short form) - Note Progress Note: NEUROSURGERY POD #1 In ICU PE: Intubated; 132/57, 50's, O2 sat 99% CV- RR; Lungs- decreased BS at bases; Abd- benign, obese; Ext- no sign of DVT CN- B pupil 3 mm minimal to non-reactive; no gag; no Doll's; Motor- occ head movement, B leg slight flexing to pain WBC 4.4, Hgb 8.9, Cr 2.2 BUN 52; Na 145, K 5.[address]- reduced R cerebellar ICH, increased L cerebellar ICH, increased IVH within lateral and third ventricle with ventricular dilatation; cortical B SAH Probable cerebellar hypertensive stroke/ICH s/p posterior fossa craniectomy Coagulopathy and thrombocytopenia Diffuse and expanding hemorrhagic pattern make further surgical intervention less safe and helpful Prognosis poor SBP range 100-150 Care d/w family last night D/w ICU team
--- NOTE | 2019-03-17 09:07 | PN ---
Physical Exam: SUBJECTIVE: Patient seen and examined at bed side in ICU, intubated , minimal responsive to painful stimuli, repeat CT scan with transportation inspector ICH , ICU team discuss with family who agree to extubate pt and comfort care , pt was extubated , morphine drip stated and pt pronoused deat @ 1:56 pm per ICU team. OBJECTIVE: Vital Signs Period Temp Pulse Resp BP Sys/Baker Pulse Ox Last 24 Hr 97.6 F-98.8 F 51-81 14-21 116-168/50-82 99-99 GENERAL: intubated HEAD: S.P Cranitomy with ICH evacuation , cover with gauze EYES: fixed pupils , minimally responsive ENT:intubated LUNGS:decrease breath sounds at the bases HEART: NSR ABDOMEN: Soft, normoactive bowel sounds,echymosis periumbilical EXTREMITIES: 2+ pulses, warm, well-perfused, no edema. NEUROLOGICAL:not responding , Fixed pupuils , hyporeflexia, babinski up on left leg , not responding on right leg. Laboratory Results - last 24 hr 03/16/19 03/16/19 03/16/19 00:40 06:40 08:35 WBC RBC Hgb Hct MCV MCH MCHC RDW Plt Count MPV Sodium 139 Potassium 7.4 H* 7.0 H* Chloride 113 H Carbon Dioxide 20 L Anion Gap 6 L BUN 41.6 H Creatinine 2.1 H Est GFR (CKD-EPI)AfAm 36.65 Est GFR (CKD-EPI)NonAf 31.62 Random Glucose 142 H Calcium 7.6 L Phosphorus Magnesium Total Bilirubin 1.7 H AST 18 ALT 14 Alkaline Phosphatase 59 Total Protein 6.1 L Albumin 3.5 Urine Color Urine Appearance Urine pH Ur Specific [place] Urine Protein Urine Glucose (UA) Urine Ketones Urine Blood Urine Nitrite Urine Bilirubin Urine Urobilinogen Ur Leukocyte Esterase Urine WBC (Auto) Urine RBC (Auto) Urine Casts (Auto) U Epithel Cells (Auto) Urine Bacteria (Auto) Blood Type O POSITIVE Antibody Screen Negative Crossmatch See Detail 03/16/19 03/16/19 03/16/19 11:15 11:15 14:15 WBC 3.1 L RBC 2.80 L Hgb 9.2 L Hct 27.0 L MCV 96.4 H MCH 32.8 MCHC 34.0 RDW 18.1 H Plt Count 70 L MPV 7.8 Sodium 142 Potassium 5.3 H Chloride 114 H Carbon Dioxide 21 Anion Gap 6 L BUN 41.8 H Creatinine 2.1 H Est GFR (CKD-EPI)AfAm 36.65 Est GFR (CKD-EPI)NonAf 31.62 Random Glucose 226 H Calcium 7.9 L Phosphorus Magnesium Total Bilirubin AST ALT Alkaline Phosphatase Total Protein Albumin Urine Color Yellow Urine Appearance Clear Urine pH 5.0 Ur Specific [place] 1.009 L Urine Protein Negative Urine Glucose (UA) Negative Urine Ketones Negative Urine Blood Trace Urine Nitrite Negative Urine Bilirubin Negative Urine Urobilinogen 0.2 Ur Leukocyte Esterase Negative Urine WBC (Auto) 0 Urine RBC (Auto) 1 Urine Casts (Auto) 0 U Epithel Cells (Auto) 0.3 Urine Bacteria (Auto) 0.8 Blood Type Antibody Screen Crossmatch 03/16/19 03/16/19 03/17/19 16:10 22:30 05:45 WBC 4.4 RBC 2.67 L Hgb 8.9 L Hct 26.1 L MCV 97.9 H MCH 33.5 MCHC 34.2 RDW 17.4 H Plt Count 49 L D MPV 8.1 Sodium 144 147 H Potassium 5.2 H 5.2 H Chloride 116 H 118 H Carbon Dioxide 21 20 L Anion Gap 7 L 9 BUN 41.9 H 45.9 H Creatinine 2.0 H 2.1 H Est GFR (CKD-EPI)AfAm 38.87 36.65 Est GFR (CKD-EPI)NonAf 33.54 31.62 Random Glucose 148 H 149 H Calcium 8.4 L 8.3 L Phosphorus Magnesium Total Bilirubin AST ALT Alkaline Phosphatase Total Protein Albumin Urine Color Urine Appearance Urine pH Ur Specific [place] Urine Protein Urine Glucose (UA) Urine Ketones Urine Blood Urine Nitrite Urine Bilirubin Urine Urobilinogen Ur Leukocyte Esterase Urine WBC (Auto) Urine RBC (Auto) Urine Casts (Auto) U Epithel Cells (Auto) Urine Bacteria (Auto) Blood Type Antibody Screen Crossmatch 03/17/19 05:45 WBC RBC Hgb Hct MCV MCH MCHC RDW Plt Count MPV Sodium 145 Potassium 5.2 H Chloride 117 H Carbon Dioxide 18 L Anion Gap 10 BUN 52.0 H Creatinine 2.2 H Est GFR (CKD-EPI)AfAm 34.64 Est GFR (CKD-EPI)NonAf 29.89 Random Glucose 154 H Calcium 8.4 L Phosphorus 3.5 Magnesium 1.7 L Total Bilirubin AST ALT Alkaline Phosphatase Total Protein Albumin Urine Color Urine Appearance Urine pH Ur Specific [place] Urine Protein Urine Glucose (UA) Urine Ketones Urine Blood Urine Nitrite Urine Bilirubin Urine Urobilinogen Ur Leukocyte Esterase Urine WBC (Auto) Urine RBC (Auto) Urine Casts (Auto) U Epithel Cells (Auto) Urine Bacteria (Auto) Blood Type Antibody Screen Crossmatch Active Medications Generic Name Dose Route Start Last Admin Trade Name Freq PRN Reason Stop Dose Admin Chlorhexidine Gluconate 1 applic 03/16/19 22:00 03/16/19 22:01 Hibiclens For Decolonization - TP 1 applic HS CARISSA Administration Fentanyl 50 mcg 03/16/19 03:55 Sublimaze Injection - IVPUSH [id number] PRN PAIN-PACU ORDER X 4 DOSES ONLY Nicardipine HCl 25 mg/ 250 mls @ 25 mls/hr 03/15/19 23:00 03/16/19 22:02 Dextrose IVPB Not Given TITR CARISSA Protocol 2.5 MG/HR Octreotide Acetate 200 mcg/ 500 mls @ 20.833 mls/hr 03/15/19 23:59 03/16/19 23:31 Octreotide Acetate 1,000 mcg/ IVPB Not Given Dextrose Q24H CARISSA Cefazolin Sodium 1 gm/ 50 mls @ 100 mls/hr 03/16/19 18:00 03/17/19 01:56 Dextrose IVPB 03/18/19 09:59 100 mls/hr Q8H-IV CARISSA Administration Sodium Chloride 1,000 mls @ 50 mls/hr 03/16/19 23:30 03/17/19 00:09 1/2 Normal Saline IV 03/17/19 23:24 50 mls/hr ASDIR CARISSA Administration Mannitol 12.5 gm 03/16/19 19:00 03/17/19 06:20 Osmitrol - IVPB 12.5 gm Q6H CARISSA Administration Morphine Sulfate 4 mg 03/16/19 04:43 Morphine Sulfate IVPUSH Q3H PRN PAIN LEVEL 4 - 6 Mupirocin 1 applic 03/16/19 10:00 03/16/19 22:01 Bactroban Ointment (For Decolonization) - NS 03/21/19 09:59 1 applic BID CARISSA Administration Ondansetron HCl 4 mg 03/16/19 04:41 Zofran Injection IVPUSH Q6H PRN NAUSEA Pantoprazole Sodium 40 mg 03/16/19 10:00 03/16/19 09:09 Protonix Iv IVPUSH 40 mg DAILY CARISSA Administration CBC, BMP 03/17/19 05:45 03/17/19 05:45 ASSESSMENT/PLAN: # POD#1 Suboccipital craniectomy, debridement of Right posterior fossa tissue, drainage of unclotted blood; microdissection due to a likely cerebellar hypertensive stroke/hemorrhage with mass effect # Hyperkalemia 7.2 treated medically with D5 and Lasix 40 , Albuterol X3 , Gluconate ca amd trend down to 5.3 , cont to monitor BMP # Anemia # thrombocytopenia #Upper GI Bleed likely 2/2 cirrhosis # Cirrhosis # AAA S.p repeair but is larger than before 6.1 compare to 5.5 # HTN # HLD # DNR # ALEXIS Plan : * monitor in ICU * maintain BP 90-150 systolic * Nicardipine * Octeriotide * IV fluids NS (was on RL that contain K ) * Cefazolin 1gm IV Q 8hr * PPI , Zofran , * Morphine 4 mg IV Q 4hr * Monitor H/H * repeat lab in AM * DVTS proph mechanical * poor prognosis * repeat head CT scan with extensive bleeding, ICU team discuss goal of care with family who decide to extubate the pt and put hi on comfort care with morphin Gtt, pt pronounce @ 1.56pm by ICU team. Visit type - Emergency Visit Emergency Visit: Yes ED Registration Date: 03/15/19 Care time: The patient presented to the Emergency Department on the above date and was hospitalized for further evaluation of their emergent condition. - New Patient This patient is new to me today: Yes Date on this admission: 03/17/19 - Critical Care Critical Care patient: Yes Total Critical Care Time (in minutes): 45 Critical Care Statement: The care of this patient involved high complexity decision making to prevent further life threatening deterioration of the patient 's condition and/or to evaluate & treat vital organ system(s) failure or risk of failure. ATTENDING PHYSICIAN STATEMENT I saw and evaluated the patient. I reviewed the resident's note and discussed the case with the resident. I agree with the resident's findings and plan as documented. SUBJECTIVE: OBJECTIVE: ASSESSMENT AND PLAN:
[2019-03-17] MEDS: MUPIROCIN 2% TOPICAL OINTMENT FOR DECOLONIZATION NS SCH (10:12)
[2019-03-17] MEDS: PANTOPRAZOLE SODIUM 40 MG VIAL IVPUSH SCH (10:12)
[2019-03-17] MEDS ORDERED: morphine SULFATE 4 MG/ML VIAL IVPUSH ONE (11:12)
[2019-03-17] MEDS ORDERED: MORPHINE SULFATE/0.9% NACL/PF 100 MG/100 ML BAG IVPB SCH (11:15)
[2019-03-17 12:27] VITALS: BP 105/53
--- NOTE | 2019-03-17 12:59 | PN ---
Progress Note, Physician History of Present Illness: Pt seen and examined at bedside. He remains in the ICU. He remain intubated. - Current Medication List Current Medications: Active Medications Chlorhexidine Gluconate (Hibiclens For Decolonization -) 1 applic TP HS [facility] Last Admin: 03/16/19 22:01 Dose: 1 applic Fentanyl (Sublimaze Injection -) 50 mcg IVPUSH [id number] PRN PRN Reason: PAIN-PACU ORDER X 4 DOSES ONLY Nicardipine HCl 25 mg/ (Dextrose) 250 mls @ 25 mls/hr IVPB TITR [facility]; Protocol Last Admin: 03/16/19 22:02 Dose: Not Given Octreotide Acetate 200 mcg/Octreotide Acetate 1,000 mcg/Dextrose 500 mls @ 20.833 mls/hr IVPB Q24H [facility] Last Admin: 03/16/19 23:31 Dose: Not Given Cefazolin Sodium 1 gm/ (Dextrose) 50 mls @ 100 mls/hr IVPB Q8H-IV [facility] Stop: 03/18/19 09:59 Last Admin: 03/17/19 10:12 Dose: 100 mls/hr Sodium Chloride (1/2 Normal Saline) 1,000 mls @ 50 mls/hr IV ASDIR [facility] Stop: 03/17/19 23:24 Last Admin: 03/17/19 00:09 Dose: 50 mls/hr Morphine Sulfate (Morphine 100mg/100ml-0.9% Nacl) 100 mg in 100 mls @ 1 mls/hr IVPB TITR [facility]; Protocol Last Admin: 03/17/19 11:35 Dose: 1 mg/hr, 1 mls/hr Mannitol (Osmitrol -) 12.5 gm IVPB Q6H [facility] Last Admin: 03/17/19 06:20 Dose: 12.5 gm Morphine Sulfate (Morphine Sulfate) 4 mg IVPUSH Q3H PRN PRN Reason: PAIN LEVEL 4 - 6 Mupirocin (Bactroban Ointment (For Decolonization) -) 1 applic NS BID [facility] Stop: 03/21/19 09:59 Last Admin: 03/17/19 10:12 Dose: 1 applic Ondansetron HCl (Zofran Injection) 4 mg IVPUSH Q6H PRN PRN Reason: NAUSEA Pantoprazole Sodium (Protonix Iv) 40 mg IVPUSH DAILY [facility] Last Admin: 03/17/19 10:12 Dose: 40 mg - Objective Vital Signs: Vital Signs Temperature 97.6 F 03/17/19 12:00 Pulse Rate 70 03/17/19 12:00 Respiratory Rate 15 03/17/19 12:00 Blood Pressure 105/53 L 03/17/19 12:00 O2 Sat by Pulse Oximetry (%) 99 03/17/19 09:00 Constitutional: Yes: Calm Eyes: Yes: Cataracts, Sclera Icterus Cardiovascular: Yes: S1, S2 Respiratory: Yes: Intubated, Mechanically Ventilated Gastrointestinal: Yes: Soft Genitourinary: Yes: Johnson Present Musculoskeletal: Yes: Muscle Weakness Edema: No Neurological: Yes: Lethargy Labs: CBC, BMP 03/17/19 05:45 03/17/19 05:45 INR, PTT INR 1.25 (0.83-1.09) H 03/16/19 06:40 Problem List - Problems (1) CKD (chronic kidney disease) Code(s): N18.9 - CHRONIC KIDNEY DISEASE, UNSPECIFIED (2) Hyperkalemia Code(s): E87.5 - HYPERKALEMIA (3) Brain bleed Code(s): I61.9 - NONTRAUMATIC INTRACEREBRAL HEMORRHAGE, UNSPECIFIED (4) Nausea & vomiting Code(s): R11.2 - NAUSEA WITH VOMITING, UNSPECIFIED Qualifiers: Vomiting type: bilious vomiting Qualified Code(s): R11.14 - Bilious vomiting (5) Thrombocytopenia Code(s): D69.6 - THROMBOCYTOPENIA, UNSPECIFIED Assessment/Plan Current Medications Generic Name Dose Route Start Last Admin Trade Name Fallon PRN Reason Stop Dose Admin Chlorhexidine Gluconate 1 applic 03/16/19 22:00 03/16/19 22:01 Hibiclens For Decolonization - TP 1 applic HS [facility] Administration Fentanyl 50 mcg 03/16/19 03:55 Sublimaze Injection - IVPUSH [id number] PRN PAIN-PACU ORDER X 4 DOSES ONLY Nicardipine HCl 25 mg/ 250 mls @ 25 mls/hr 03/15/19 23:00 03/16/19 22:02 Dextrose IVPB Not Given TITR [facility] Protocol 2.5 MG/HR Octreotide Acetate 200 mcg/ 500 mls @ 20.833 mls/hr 03/15/19 23:59 03/16/19 23:31 Octreotide Acetate 1,000 mcg/ IVPB Not Given Dextrose Q24H [facility] Cefazolin Sodium 1 gm/ 50 mls @ 100 mls/hr 03/16/19 18:00 03/17/19 10:12 Dextrose IVPB 03/18/19 09:59 100 mls/hr Q8H-IV [facility] Administration Sodium Chloride 1,000 mls @ 50 mls/hr 03/16/19 23:30 03/17/19 00:09 1/2 Normal Saline IV 03/17/19 23:24 50 mls/hr ASDIR [facility] Administration Morphine Sulfate 100 mg in 100 mls @ 1 mls/hr 03/17/19 11:15 03/17/19 11:35 Morphine 100mg/100ml-0.9% Nacl IVPB 1 mg/hr TITR [facility] 1 mls/hr Administration Protocol 1 MG/HR Mannitol 12.5 gm 03/16/19 19:00 03/17/19 06:20 Osmitrol - IVPB 12.5 gm Q6H [facility] Administration Morphine Sulfate 4 mg 03/16/19 04:43 Morphine Sulfate IVPUSH Q3H PRN PAIN LEVEL 4 - 6 Mupirocin 1 applic 03/16/19 10:00 03/17/19 10:12 Bactroban Ointment (For Decolonization) - NS 03/21/19 09:59 1 applic BID [facility] Administration Ondansetron HCl 4 mg 03/16/19 04:41 Zofran Injection IVPUSH Q6H PRN NAUSEA Pantoprazole Sodium 40 mg 03/16/19 10:00 03/17/19 10:12 Protonix Iv IVPUSH 40 mg DAILY [facility] Administration Impression 1. hyperkalemia 2. ckd 3. jennifer 4. hemorrhagic cva 5. s/p craniotomy 6. htn 7. hx aaa 8. cirrhosis 9. respiratory failure Plan - potassium had improved - renal function is stable - discussed with ICU team, pt will go on comfort care and be compassionately weaned. The decision was made after a family meeting. - cont management per ICU team
--- NOTE | 2019-03-17 13:43 | PN ---
Teaching Attending Note Name of Resident: Georges Brito ATTENDING PHYSICIAN STATEMENT I saw and evaluated the patient. I reviewed the resident's note and discussed the case with the resident. I agree with the resident's findings and plan as documented. SUBJECTIVE: Pt seen and examined in the ICU. Remains inbutated, unresponsive off sedation. Still with spontaneous breaths. After discussions with family, pt wishes for compassionate extubation. OBJECTIVE: Vital Signs Period Temp Pulse Resp BP Sys/Baker Pulse Ox Last 24 Hr 97.6 F-98.8 F 53-81 14-21 105-168/53-82 99-99 Intake & Output 03/14/19 03/15/19 03/16/19 03/17/19 23:59 23:59 23:59 23:59 Intake Total 5664 800 Output Total 4050 Balance 1614 800 Weight 92.986 kg Gen: intubated, unresponsive Heart: RRR Lung: decreased breath sounds at the bases Abd: soft, nontender Ext: no edema CBC, BMP 03/17/19 05:45 03/17/19 05:45 Active Medications Chlorhexidine Gluconate (Hibiclens For Decolonization -) 1 applic TP HS [facility] Last Admin: 03/16/19 22:01 Dose: 1 applic Fentanyl (Sublimaze Injection -) 50 mcg IVPUSH [id number] PRN PRN Reason: PAIN-PACU ORDER X 4 DOSES ONLY Nicardipine HCl 25 mg/ (Dextrose) 250 mls @ 25 mls/hr IVPB TITR [facility]; Protocol Last Admin: 03/16/19 22:02 Dose: Not Given Octreotide Acetate 200 mcg/Octreotide Acetate 1,000 mcg/Dextrose 500 mls @ 20.833 mls/hr IVPB Q24H [facility] Last Admin: 03/16/19 23:31 Dose: Not Given Cefazolin Sodium 1 gm/ (Dextrose) 50 mls @ 100 mls/hr IVPB Q8H-IV [facility] Stop: 03/18/19 09:59 Last Admin: 03/17/19 10:12 Dose: 100 mls/hr Sodium Chloride (1/2 Normal Saline) 1,000 mls @ 50 mls/hr IV ASDIR [facility] Stop: 03/17/19 23:24 Last Admin: 03/17/19 00:09 Dose: 50 mls/hr Morphine Sulfate (Morphine 100mg/100ml-0.9% Nacl) 100 mg in 100 mls @ 1 mls/hr IVPB TITR [facility]; Protocol Last Admin: 03/17/19 11:35 Dose: 1 mg/hr, 1 mls/hr Mannitol (Osmitrol -) 12.5 gm IVPB Q6H [facility] Last Admin: 03/17/19 06:20 Dose: 12.5 gm Morphine Sulfate (Morphine Sulfate) 4 mg IVPUSH Q3H PRN PRN Reason: PAIN LEVEL 4 - 6 Mupirocin (Bactroban Ointment (For Decolonization) -) 1 applic NS BID [facility] Stop: 03/21/19 09:59 Last Admin: 03/17/19 10:12 Dose: 1 applic Ondansetron HCl (Zofran Injection) 4 mg IVPUSH Q6H PRN PRN Reason: NAUSEA Pantoprazole Sodium (Protonix Iv) 40 mg IVPUSH DAILY [facility] Last Admin: 03/17/19 10:12 Dose: 40 mg ASSESSMENT AND PLAN: Cerebellar Hemorrhage s/p Suboccipital Craniectomy/Evacuation Liver Cirrhosis Severe Thrombocytopenia GI Bleed Acute on Chronic Renal Failure HTN - decision made by family for compassionate extubation - start morphine gtt - ativan as needed - discussed with family at bedside critical care time spent in reviewing chart, evaluating patient and formulating plan 35 min
[2019-03-17 14:08] VITALS: PULSE 72; TEMP 97.6
--- NOTE | 2019-03-17 14:13 | PN ---
Physical Exam: SUBJECTIVE: Patient seen and examined at bedside. no changes from yesterday OBJECTIVE: Vital Signs Period Temp Pulse Resp BP Sys/Baker Pulse Ox Last 24 Hr 97.6 F-98.8 F 56-81 14-21 105-168/53-82 99-99 GENERAL: A&Ox0, no acute distress EYES: pupils fixed and dilated ENT: Dry mucus membranes LUNGS: no breath sounds HEART: no heart sounds auscultated ABDOMEN: Soft EXTREMITIES: diffuse petechiae NEUROLOGICAL: No pupillary or corneal reflexes. No neurologic function detected. Laboratory Results - last 24 hr 03/16/19 03/16/19 03/16/19 14:15 16:10 22:30 WBC RBC Hgb Hct MCV MCH MCHC RDW Plt Count MPV Sodium 144 147 H Potassium 5.2 H 5.2 H Chloride 116 H 118 H Carbon Dioxide 21 20 L Anion Gap 7 L 9 BUN 41.9 H 45.9 H Creatinine 2.0 H 2.1 H Est GFR (CKD-EPI)AfAm 38.87 36.65 Est GFR (CKD-EPI)NonAf 33.54 31.62 Random Glucose 148 H 149 H Calcium 8.4 L 8.3 L Phosphorus Magnesium Urine Color Yellow Urine Appearance Clear Urine pH 5.0 Ur Specific [place] 1.009 L Urine Protein Negative Urine Glucose (UA) Negative Urine Ketones Negative Urine Blood Trace Urine Nitrite Negative Urine Bilirubin Negative Urine Urobilinogen 0.2 Ur Leukocyte Esterase Negative Urine WBC (Auto) 0 Urine RBC (Auto) 1 Urine Casts (Auto) 0 U Epithel Cells (Auto) 0.3 Urine Bacteria (Auto) 0.8 03/17/19 03/17/19 05:45 05:45 WBC 4.4 RBC 2.67 L Hgb 8.9 L Hct 26.1 L MCV 97.9 H MCH 33.5 MCHC 34.2 RDW 17.4 H Plt Count 49 L D MPV 8.1 Sodium 145 Potassium 5.2 H Chloride 117 H Carbon Dioxide 18 L Anion Gap 10 BUN 52.0 H Creatinine 2.2 H Est GFR (CKD-EPI)AfAm 34.64 Est GFR (CKD-EPI)NonAf 29.89 Random Glucose 154 H Calcium 8.4 L Phosphorus 3.5 Magnesium 1.7 L Urine Color Urine Appearance Urine pH Ur Specific [place] Urine Protein Urine Glucose (UA) Urine Ketones Urine Blood Urine Nitrite Urine Bilirubin Urine Urobilinogen Ur Leukocyte Esterase Urine WBC (Auto) Urine RBC (Auto) Urine Casts (Auto) U Epithel Cells (Auto) Urine Bacteria (Auto) Active Medications Generic Name Dose Route Start Last Admin Trade Name Freq PRN Reason Stop Dose Admin Chlorhexidine Gluconate 1 applic 03/16/19 22:00 03/16/19 22:01 Hibiclens For Decolonization - TP 1 applic HS [facility] Administration Fentanyl 50 mcg 03/16/19 03:55 Sublimaze Injection - IVPUSH [id number] PRN PAIN-PACU ORDER X 4 DOSES ONLY Nicardipine HCl 25 mg/ 250 mls @ 25 mls/hr 03/15/19 23:00 03/16/19 22:02 Dextrose IVPB Not Given TITR [facility] Protocol 2.5 MG/HR Octreotide Acetate 200 mcg/ 500 mls @ 20.833 mls/hr 03/15/19 23:59 03/16/19 23:31 Octreotide Acetate 1,000 mcg/ IVPB Not Given Dextrose Q24H [facility] Cefazolin Sodium 1 gm/ 50 mls @ 100 mls/hr 03/16/19 18:00 03/17/19 10:12 Dextrose IVPB 03/18/19 09:59 100 mls/hr Q8H-IV [facility] Administration Sodium Chloride 1,000 mls @ 50 mls/hr 03/16/19 23:30 03/17/19 00:09 1/2 Normal Saline IV 03/17/19 23:24 50 mls/hr ASDIR [facility] Administration Morphine Sulfate 100 mg in 100 mls @ 1 mls/hr 03/17/19 11:15 03/17/19 11:35 Morphine 100mg/100ml-0.9% Nacl IVPB 1 mg/hr TITR [facility] 1 mls/hr Administration Protocol 1 MG/HR Mannitol 12.5 gm 03/16/19 19:00 03/17/19 13:39 Osmitrol - IVPB Not Given Q6H [facility] Morphine Sulfate 4 mg 03/16/19 04:43 Morphine Sulfate IVPUSH Q3H PRN PAIN LEVEL 4 - 6 Mupirocin 1 applic 03/16/19 10:00 03/17/19 10:12 Bactroban Ointment (For Decolonization) - NS 03/21/19 09:59 1 applic BID [facility] Administration Ondansetron HCl 4 mg 03/16/19 04:41 Zofran Injection IVPUSH Q6H PRN NAUSEA Pantoprazole Sodium 40 mg 03/16/19 10:00 03/17/19 10:12 Protonix Iv IVPUSH 40 mg DAILY [facility] Administration ASSESSMENT/PLAN: 68 year old male s/p posterior cerebellar hemorrhage -discussed with family about goals of care this AM -decided on compassionate weaning -placed patient on morphine ggt and extubated patient -time of 1:56pm Visit type - Emergency Visit Emergency Visit: No - New Patient This patient is new to me today: No - Critical Care Critical Care patient: Yes Total Critical Care Time (in minutes): 35 Critical Care Statement: The care of this patient involved high complexity decision making to prevent further life threatening deterioration of the patient 's condition and/or to evaluate & treat vital organ system(s) failure or risk of failure. ATTENDING PHYSICIAN STATEMENT I saw and evaluated the patient. I reviewed the resident's note and discussed the case with the resident. I agree with the resident's findings and plan as documented. SUBJECTIVE: OBJECTIVE: ASSESSMENT AND PLAN:
--- NOTE | 2019-03-17 14:33 | EKG ---
Test Reason : Blood Pressure : / mmHG Vent. Rate : 088 BPM Atrial Rate : 088 BPM P-R Int : 184 ms QRS Dur : 100 ms QT Int : 352 ms P-R-T Axes : 051 015 157 degrees QTc Int : 425 ms NORMAL SINUS RHYTHM ABNORMAL ECG WHEN COMPARED WITH ECG OF 23-JUN-2014 13:05, T WAVE INVERSION NOW EVIDENT IN LATERAL LEADS Confirmed by JADON DUGAN MD ([id number]) on 03/17/2019 2:33:21 PM Referred By: Confirmed By:JADON DUGAN MD
--- NOTE | 2019-03-17 14:52 | PN ---
Teaching Attending Note Name of Resident: Trino Freitas ATTENDING PHYSICIAN STATEMENT I saw and evaluated the patient. I reviewed the resident's note and discussed the case with the resident. I agree with the resident's findings and plan as documented with exceptions below. SUBJECTIVE: Patient seen and examined, being compassionately extubated when seen. OBJECTIVE: Vital Signs Period Temp Pulse Resp BP Sys/Baker Pulse Ox Last 24 Hr 97.6 F-98.8 F 56-81 14-21 105-168/53-82 99-99 Intake & Output 03/14/19 03/15/19 03/16/19 03/17/19 23:59 23:59 23:59 23:59 Intake Total 5664 800 Output Total 4050 Balance 1614 800 Weight 205 lb General: unresponsive in bed Abdomen: soft Extremities: no edema ASSESSMENT AND PLAN: 68 yom with AAA repair for infrarenal aneurysm (06/29/14), cirrhosis thrombocytopenia, HTN, and HLD admitted with ICH. -Cerebellar haemorrhage -Suboccipital craniectomy/evacuation -Severe thrombocytopenia -Liver cirrhosis -Acute upper gastrointestinal haemorrhage -HTN -Acute Kidney injury Plan; s/p compassionate extubation Events noted
--- NOTE | 2019-03-17 18:16 | DS ---
Physical Exam: SUBJECTIVE: Patient seen and examined at bed side in ICU, intubated , minimal responsive to painful stimuli, repeat CT scan with electrical and instrumentation mechanic ICH , ICU team discuss with family who agree to extubate pt and comfort care , pt was extubated , morphine drip stated and pt pronoused deat @ 1:56 pm per ICU team. OBJECTIVE: Vital Signs Period Temp Pulse Resp BP Sys/Baker Pulse Ox Last 24 Hr 97.6 F-98.8 F 59-81 15-21 105-148/53-82 99-99 PHYSICAL EXAM GENERAL: intubated HEAD: S.P Cranitomy with ICH evacuation , cover with gauze EYES: fixed pupils , minimally responsive ENT:intubated LUNGS:decrease breath sounds at the bases HEART: NSR ABDOMEN: Soft, normoactive bowel sounds,echymosis periumbilical EXTREMITIES: 2+ pulses, warm, well-perfused, no edema. NEUROLOGICAL:not responding , Fixed pupuils , hyporeflexia, babinski up on left leg , not responding on right leg. LABS Laboratory Results - last 24 hr 03/16/19 03/17/19 03/17/19 22:30 05:45 05:45 WBC 4.4 RBC 2.67 L Hgb 8.9 L Hct 26.1 L MCV 97.9 H MCH 33.5 MCHC 34.2 RDW 17.4 H Plt Count 49 L D MPV 8.1 Sodium 147 H 145 Potassium 5.2 H 5.2 H Chloride 118 H 117 H Carbon Dioxide 20 L 18 L Anion Gap 9 10 BUN 45.9 H 52.0 H Creatinine 2.1 H 2.2 H Est GFR (CKD-EPI)AfAm 36.65 34.64 Est GFR (CKD-EPI)NonAf 31.62 29.89 Random Glucose 149 H 154 H Calcium 8.3 L 8.4 L Phosphorus 3.5 Magnesium 1.7 L CBC, BMP 03/17/19 05:45 03/17/19 05:45 HOSPITAL COURSE: Date of Admission:03/15/19 Date of Discharge: 03/17/19 Patient is a 68 year old male with PMHx of AAA repair for infrarenal aneurysm ( 06/29/14), cirrhosis thrombocytopenia, HTN, and HLD who presents with headache, intractable vomiting, and loose stool for one day. Family at bedside assisted with history. Pt complained of headache this morning that was later associated with coffee ground emesis, hematemesis, and loose, maroon-colored stool. No complaints of chest pain or SOB. On arrival to the ED, pt was hypertensive (192/ 81), lethargic, and became unresponsive with depressed respirations. Pt was intubated with rocuronium and aerated well following intubation. CT head showed cerebellar dentate hypodense hemorrhage with intraventricular extension. Neurosurgery (Dr. Hyatt) was consulted. Poor prognosis based on CT scan was discussed with family. Pt was given mannitol, 2 units FFP, 1 unit PRBC, and vtamin K. Poor prognosis based on CT scan was discussed with family and they wish to proceed with surgery.after surgery pt was monitored in ICU intubated and minimally responsive , K was elevated and treated medicaly , BP maintain below90- 150 systolic , pt was not reposning with fixed pupils , repeat CT scan today shows sever extensive bleeding, ICU team discuss goal of care with family, who decided on compassionate weaning, patient was placed on morphine ggt and extubated ,pt pronounced time @ 1:56pm. Minutes to complete discharge: 45 Discharge Summary Reason For Visit: CEREBRAL HEMORRHAGE Condition: Critical - Instructions Disposition: - Home Medications Comprehensive Discharge Medication List: Ambulatory Orders Atorvastatin Ca [Lipitor] 20 mg PO HS 03/02/14 Carvedilol [Coreg] 6.25 mg PO DAILY 03/02/14 Allopurinol [Zyloprim -] 100 mg PO DAILY 06/20/15 Losartan/Hydrochlorothiazide [Losartan-Hctz 100-12.5 mg Tab] 1 tab PO DAILY 10/30 Aspirin [Aspirin EC] 81 mg PO DAILY #0 06/21/15 Colchicine 0.6 mg PO DAILY #7 tablet 06/21/15 This patient is new to me today: Yes Date on this admission: 03/17/19 Emergency Visit: Yes ED Registration Date: 03/15/19 Care time: The patient presented to the Emergency Department on the above date and was hospitalized for further evaluation of their emergent condition. Critical Care patient: Yes Total Critical Care Time (in minutes): 45 Critical Care Statement: The care of this patient involved high complexity decision making to prevent further life threatening deterioration of the patient 's condition and/or to evaluate & treat vital organ system(s) failure or risk of failure. - Discharge Referral Referred to [facility] No ATTENDING PHYSICIAN STATEMENT I saw and evaluated the patient. I reviewed the resident's note and discussed the case with the resident. I agree with the resident's findings and plan as documented. SUBJECTIVE: OBJECTIVE: ASSESSMENT AND PLAN:
== END 2019-03-17 17:15 | disposition expired | DRG 23 ==
LOC: JER 20:36 → JERBED 23:47 → JICU 03-16 16:55
PROVIDERS: ADMIT Internal Medicine; ATTEND Hospitalist
PROC: 0CHY7BZ Insertion of Airway into Mouth and Throat, Via Natural or Artificial Opening (ICD-10-PCS; 2019-03-15)
PROC: 5A1935Z Respiratory Ventilation, Less than 24 Consecutive Hours (ICD-10-PCS; 2019-03-15)
PROC: 30233L1 Transfusion of Nonautologous Fresh Plasma into Peripheral Vein, Percutaneous Approach (ICD-10-PCS; 2019-03-16)
PROC: 30233N1 Transfusion of Nonautologous Red Blood Cells into Peripheral Vein, Percutaneous Approach (ICD-10-PCS; 2019-03-16)
PROC: 30233R1 Transfusion of Nonautologous Platelets into Peripheral Vein, Percutaneous Approach (ICD-10-PCS; 2019-03-16)
PROC: 00CC0ZZ Extirpation of Matter from Cerebellum, Open Approach (ICD-10-PCS; principal; 2019-03-16 01:10)
DX: I62.9 Nontraumatic intracranial hemorrhage, unspecified (principal); J96.01 Acute respiratory failure with hypoxia; G91.1 Obstructive hydrocephalus; K92.2 Gastrointestinal hemorrhage, unspecified; N17.9 Acute kidney failure, unspecified; D68.9 Coagulation defect, unspecified; D68.32 Hemorrhagic disorder due to extrinsic circulating anticoagulants; I61.4 Nontraumatic intracerebral hemorrhage in cerebellum; E78.5 Hyperlipidemia, unspecified; K74.60 Unspecified cirrhosis of liver; R51 Headache; I25.10 Atherosclerotic heart disease of native coronary artery without angina pectoris; D64.9 Anemia, unspecified; K21.9 Gastro-esophageal reflux disease without esophagitis; N28.1 Cyst of kidney, acquired; K29.70 Gastritis, unspecified, without bleeding; K76.0 Fatty (change of) liver, not elsewhere classified; E66.9 Obesity, unspecified; Z68.31 Body mass index [BMI] 31.0-31.9, adult; I71.4 Abdominal aortic aneurysm, without rupture; R58 Hemorrhage, not elsewhere classified; T45.515A Adverse effect of anticoagulants, initial encounter; D69.6 Thrombocytopenia, unspecified; R00.1 Bradycardia, unspecified; E87.5 Hyperkalemia; I12.9 Hypertensive chronic kidney disease with stage 1 through stage 4 chronic kidney disease, or unspecified chronic kidney disease; N18.9 Chronic kidney disease, unspecified; K22.70 Barrett's esophagus without dysplasia; K63.5 Polyp of colon; S30.1XXA Contusion of abdominal wall, initial encounter
CPT/HCPCS: 36415; 36430; 36511; 70450-TC; 71045-TC-FY; 71275-TC; 74174-TC; 80048; 80053; 80061; 81003; 82550; 82962; 83721; 83735; 84100; 84132; 84484; 85027; 85610; 85730; 86850; 86900; 86901; 86922; 87086; 93005; 93010; 94002; 94640; 94760; 99285-25; J7030; P9017; P9034; P9038; P9058; Q0162